=== PATIENT | female | born 1965 | race Hispanic/Latino ===

== ENCOUNTER → 2016-10-16 | Outpatient (CLI) | payer OTHER ==
[~2016-10-16] MED LIST: ALPR0.25 PO; ASPI-999 PO; BIRTH CONTROL; DICLOFENAC; GABAPENTIN; MESA800T PO; MULT-608; ONDAN4ODT PO; PNT40TEC PO
--- NOTE | 2016-10-21 17:17 | Diagnostic Imaging Report ---
Bilateral screening mammogram. The current study was also evaluated with a Computer Aided Detection (CAD) system. INDICATION: Screening. No current complaints stated on the questionnaire. COMPARISON: 10/08/15. FINDINGS: The breasts are composed of heterogeneously dense parenchyma which may decrease mammographic sensitivity. Benign-appearing calcifications are seen. Allowing for technique and positional differences, no suspicious change is seen. IMPRESSION: No significant change. ACR BI-RADS Category 2: Benign findings. Result letter will be mailed to the patient. Note: At least 10% of breast cancer is not imaged by mammography. Dictated by: Dictated on workstation # [id number]
== END ==
LOC: RAD 08:17
PROVIDERS: ATTEND Nurse Practitioner Family
DX: Z12.31 Encounter for screening mammogram for malignant neoplasm of breast (principal)
CPT/HCPCS: 77067

== ENCOUNTER 2017-04-08 14:30 | Outpatient (CLI) | payer OTHER ==
[~2017-04-08] VITALS: Ht 154.9 cm; Wt 58.1 kg
== END 2017-04-08 14:49 ==
LOC: PREOP 14:30
PROVIDERS: ATTEND Surgery
DX: Z01.818 Encounter for other preprocedural examination (principal); K92.1 Melena

== ENCOUNTER 2017-04-13 09:18 | Day surgery (SDC) | payer OTHER ==
[~2017-04-13] VITALS: Ht 154.9 cm; Wt 58.1 kg
[2017-04-13] MEDS ORDERED: LACTATED RINGERS 1,000 ML IV ONE (09:19)
--- OUTSIDE RECORDS SUMMARY | 2017-04-13 09:21 | XMS REPORT ---
Author Author JONY DE LA TORRE Organization eClinicalWorks Address Unknown Phone Unavailable Care Team Providers Care District Supervisor Name Role Phone JONY DE LA TORRE CP Unavailable Allergies No Known Allergies Problems Problem Type Condition Code Onset Dates Condition Status Problem Insomnia G47.00 Active Problem Pain in thoracic spine M54.6 Active Problem Anxiety F41.9 Active Assessment Colitis K52.9 Active Problem Routine adult health maintenance Z00.00 Active Assessment Routine health maintenance Z00.00 Active Medications No Known Medications Results No Known Results Summary Purpose eClinicalWorks Submission
--- OUTSIDE RECORDS SUMMARY | 2017-04-13 09:21 | XMS REPORT ---
Author Author KIM ISMMONS [facility] Address [address] [place] [address] Care Team Providers Care Etl Consultant Name Role Phone KIM SIMMONS Unavailable PROBLEMS Type Condition ICD9-CM Code [id number] Code Onset Dates Condition Status SNOMED Code Problem Lumbago with sciatica, right side M54.41 Active 038664808 Problem Anxiety F41.9 Active 21506616 Problem Reactive depression F32.9 Active 66202603 Problem Inflammatory bowel disease K52.9 Active 57223126 ALLERGIES No Known Allergies SOCIAL HISTORY Never Assessed PLAN OF CARE Activity Details Follow Up 3 Months Reason: VITAL SIGNS Height 60 in 2016-07-21 Weight 129.4 lbs 2016-07-21 Temperature 98.1 degrees Fahrenheit 2016-07-21 Heart Rate 80 bpm 2016-07-21 Respiratory Rate 20 2016-07-21 BMI 25.27 kg/m2 2016-07-21 Blood pressure systolic 108 mmHg 2016-07-21 Blood pressure diastolic 72 mmHg 2016-07-21 MEDICATIONS Medication Instructions Dosage Frequency Start Date End Date Duration Status Lialda 1.2 GM Orally Once a day 2 tabs 24h Active Zoloft 50 mg Orally Once a day, pc 1 tablet Jul, 30 day(s) Active RESULTS No Results PROCEDURES No Known procedures IMMUNIZATIONS No Known Immunizations MEDICAL (GENERAL) HISTORY Type Description Date Medical History back pain
--- OUTSIDE RECORDS SUMMARY | 2017-04-13 09:21 | XMS REPORT ---
Author Author KIM SIMMONS [facility] Address [address] [place] [address] Care Team Providers Care Pharmacy Picking Tech Name Role Phone KIM SIMMONS Unavailable PROBLEMS Type Condition ICD9-CM Code [id number] Code Onset Dates Condition Status SNOMED Code Problem Lumbago with sciatica, right side M54.41 Active 662700175 Problem Anxiety F41.9 Active 30844579 Problem Reactive depression F32.9 Active 22741017 Problem Inflammatory bowel disease K52.9 Active 38659376 ALLERGIES Unknown Allergies SOCIAL HISTORY No smoking Hx information available PLAN OF CARE VITAL SIGNS Height 60 in 2016-07-14 Heart Rate 78 bpm 2016-07-14 Respiratory Rate 18 2016-07-14 Blood pressure systolic 126 mmHg 2016-07-14 Blood pressure diastolic 82 mmHg 2016-07-14 MEDICATIONS Unknown Medications RESULTS No Results PROCEDURES No Known procedures IMMUNIZATIONS No Known Immunizations
--- OUTSIDE RECORDS SUMMARY | 2017-04-13 09:23 | XMS REPORT ---
Author Author JONY DE LA TORRE Organization eClinicalWorks Address Unknown Phone Unavailable Care Team Providers Care Electronic Equipment Repairmen Name Role Phone JONY DE LA TORRE CP Unavailable Allergies No Known Allergies Problems Problem Type Condition Code Onset Dates Condition Status Problem Insomnia G47.00 Active Problem Pain in thoracic spine M54.6 Active Problem Anxiety F41.9 Active Problem Routine adult health maintenance Z00.00 Active Medications No Known Medications Results No Known Results Summary Purpose eClinicalWorks Submission
--- OUTSIDE RECORDS SUMMARY | 2017-04-13 09:23 | XMS REPORT | Referral Summary ---
Author Author [facility] Organization [facility] Address Unknown Phone Unavailable Care Team Providers Care Program Project Manager Name Role Phone PROVIDER, NOTINSYSTEM PCP Unavailable Encounter [facility] [id number] Date(s): 03/04/16 - 03/04/16 [facility] [address] [place] [address] Discharge Diagnosis: Ulcerative colitis Discharge Disposition: 01-Home or Self Care Attending Physician: Camille Patterson III, MD Admitting Physician: Camille Patterson III, MD Referring Physician: Guanaco Viera Vital Signs Most recent to 1 oldest [Reference Range]: Peripheral Pulse 85 bpm Rate [60-100 bpm] (03/04/16 12:55 PM) Blood Pressure 110/58 mmHg [90-140/60-90 mmHg] (03/04/16 12:55 PM) SpO2 98 % (03/04/16 12:55 PM) Problem List Condition Effective Dates Status Health Status Informant Ulcerative Active colitis(Confirmed) Allergies, Adverse Reactions, Alerts No Known Medication Allergies Medications aspirin 81 mg, Oral, as needed, 0 Refill(s) Start Date: 06/28/15 Status: Ordered cyclobenzaprine 10 mg oral tablet 10 mg 1 tabs, Oral, TID, as needed for spasm, # 30 tabs, 0 Refill(s) Start Date: 03/04/16 Status: Ordered gabapentin 100 mg oral capsule 100 mg 1 caps, Oral, TID, # 90 caps, 0 Refill(s) Start Date: 03/04/16 Status: Ordered Lialda 1.2 g oral delayed release tablet 2.4 g 2 tabs, Oral, Daily, # 120 tabs, 0 Refill(s), samples given to patient (Rx ) Start Date: 06/28/15 Status: Ordered Results No data available for this section Immunizations No data available for this section Procedures No data available for this section Social History Social History Type Response Smoking Status Never smoker Assessment and Plan Extracted from: Title: Office Visit Note Author: Camille Patterson III, MD Date: 03/04/16 Assessment/Plan 1.Ulcerative colitis Continue Lialda 2.4 g daily samples number 72 given and we will work onher paperworkso thatthe medicationscan either be provided by the personal computer specialist or we can prescribe another medication such as balsalazide or sulfasalazine. Addendum She has a new primary care physician Yang Teresa. Is also taking gabapentin and by Leonardo cyclobenzaprine. Overall she is complaining that the distance from her home to her [place] offices very difficult for her so she may need to reestablish with a premium service representative Tin ANNA closer to home. We are still trying to establish however whether the Lialda will be on provided. 2016 13:50:43 CDT
--- OUTSIDE RECORDS SUMMARY | 2017-04-13 09:23 | XMS REPORT ---
Author FRIEDA Chakraborty [facility] eClinicalWorks Address Unknown Phone Unavailable Care Team Providers Care Telephone Station Repairer Name Role Phone FRIEDA SAWANT CP Unavailable Allergies, Adverse Reactions, Alerts Substance Reaction Event Type N.K.D.A. Info Not Available Non Drug Allergy Problems Problem Type Condition Code Onset Dates Condition Status Problem Routine adult health maintenance Z00.00 Active Assessment Colitis K52.9 Active Problem Pain in thoracic spine M54.6 Active Medications Medication Code System Code Instructions Start Date End Date Status Dosage Asacol HD [facility] [address]-00 800 MG Orally Three times a day 2 tablets Procedures Procedure Coding System Code Date Office Visit, Est Pt., Level 3 CPT-4 65680 May 29, 2015 Vital Signs Date/Time: May 29, 2015 Temperature 97.7 F Weight 134.0 lbs Height 60 in BMI 26.17 Index Blood Pressure Diastolic 70 mmHg Blood Pressure Systolic 112 mmHg Cardiac Monitoring Heart Rate 80 bpm Results No Known Results Summary Purpose eClinicalWorks Submission
--- OUTSIDE RECORDS SUMMARY | 2017-04-13 09:24 | XMS REPORT ---
Author Author PAUL MENARD Organization eClinicalWorks Address Unknown Phone Unavailable Care Team Providers Care Hotel Office Manager Name Role Phone PAUL MENARD CP Unavailable Allergies, Adverse Reactions, Alerts Substance Reaction Event Type N.K.D.A. Info Not Available Non Drug Allergy Problems Problem Type Condition Code Onset Dates Condition Status Problem Routine adult health maintenance Z00.00 Active Assessment Jaw pain R68.84 Active Problem Pain in thoracic spine M54.6 Active Medications Medication Code System Code Instructions Start Date End Date Status Dosage Asacol HD [facility] [address]-16 800 MG Orally Three times a day 2 tablets Lialda [facility] [address]-49 1.2 GM Orally Once a day 2 tabs Alprazolam [facility] [address]-21 0.25 MG Orally every 6hours as needed 1-2 tablet Cyclobenzaprine HCl [facility] [address]-26 10 MG Orally 2 times a day Jul 27, 2015 Aug 03, 2015 1 tablet Procedures Procedure Coding System Code Date Office Visit, Est Pt., Level 3 CPT-4 84719 Jul 27, 2015 Vital Signs Date/Time: Jul 27, 2015 Temperature 97.0 F Weight 134.6 lbs Height 60 in BMI 26.28 Index Blood Pressure Diastolic 70 mmHg Blood Pressure Systolic 106 mmHg Cardiac Monitoring Heart Rate 80 bpm Results No Known Results Summary Purpose eClinicalWorks Submission
[2017-04-13] MEDS ORDERED: HURRICAINE EXT TUBE (BENZOCAINE) ONE (09:27)
[2017-04-13] MEDS ORDERED: MIDAZOLAM 2 MG/2 ML (VERSED) VIAL ONE (09:28)
[2017-04-13] MEDS ORDERED: proPOfol 200 MG/20 ML (DIPRIVAN) VIAL IV ONE (09:28)
--- OUTSIDE RECORDS SUMMARY | 2017-04-13 09:28 | XMS REPORT ---
Author KIM Singh [facility] eClinicalWorks Address Unknown Phone Unavailable Care Team Providers Care Booking Supervisor Name Role Phone KIM SIMMONS CP Unavailable Allergies, Adverse Reactions, Alerts Substance Reaction Event Type N.K.D.A. Info Not Available Non Drug Allergy Problems Problem Type Condition Code Onset Dates Condition Status Problem Pain in thoracic spine M54.6 Active Problem Routine adult health maintenance Z00.00 Active Problem Anxiety F41.9 Active Assessment Anxiety F41.9 Active Medications Medication Code System Code Instructions Start Date End Date Status Dosage Asacol HD [facility] [address]-96 800 MG Orally Three times a day 2 tablets Alprazolam [facility] [address]-37 0.25 MG Orally qd as needed 1-2 tablet Trazodone HCl [facility] [address]-19 100 MG Orally hs September 24, 2015 1 tablet at bedtime Lialda [facility] [address]-01 1.2 GM Orally Once a day 2 tabs Procedures Procedure Coding System Code Date Office Visit, Est Pt., Level 3 CPT-4 83738 September 24, 2015 Vital Signs Date/Time: September 24, 2015 Temperature 97.7 F Weight 134 lbs Height 60 in BMI 26.17 Index Blood Pressure Diastolic 68 mmHg Blood Pressure Systolic 112 mmHg Cardiac Monitoring Heart Rate 64 bpm Results No Known Results Summary Purpose eClinicalWorks Submission
--- OUTSIDE RECORDS SUMMARY | 2017-04-13 09:28 | XMS REPORT ---
Author Author JONY DE LA TORRE Organization eClinicalWorks Address Unknown Phone Unavailable Care Team Providers Care Pediatric Physical Therapy Assistant Name Role Phone JONY DE LA TORRE CP Unavailable Allergies, Adverse Reactions, Alerts Substance Reaction Event Type N.K.D.A. Info Not Available Non Drug Allergy Problems Problem Type Condition Code Onset Dates Condition Status Problem Insomnia G47.00 Active Problem Pain in thoracic spine M54.6 Active Problem Anxiety F41.9 Active Problem Routine adult health maintenance Z00.00 Active Assessment Neuropathy G62.9 Active Medications Medication Code System Code Instructions Start Date End Date Status Dosage Lialda [facility] [address]-30 1.2 GM Orally Once a day 2 tabs Neurontin [facility] [address]-26 100 MG Orally Three times a day Jan 12, 2015 as directed Alprazolam [facility] [address]-63 0.25 MG Orally qd as needed 1-2 tablet Procedures Procedure Coding System Code Date Office Visit, Est Pt., Level 3 CPT-4 72008 December 27, 2015 Vital Signs Date/Time: December 27, 2015 Blood Pressure Systolic 120 mmHg Weight 134.0 lbs Height 60 in Blood Pressure Diastolic 76 mmHg Results No Known Results Summary Purpose eClinicalWorks Submission
--- OUTSIDE RECORDS SUMMARY | 2017-04-13 09:28 | XMS REPORT ---
Author FRIEDA Chakraborty [facility] eClinicalWorks Address Unknown Phone Unavailable Care Team Providers Care Digital Learning Platforms Manager Name Role Phone FRIEDA SAWANT CP Unavailable Allergies No Known Allergies Problems Problem Type Condition Code Onset Dates Condition Status Problem Routine adult health maintenance Z00.00 Active Problem Pain in thoracic spine M54.6 Active Medications No Known Medications Results No Known Results Summary Purpose eClinicalWorks Submission
--- OUTSIDE RECORDS SUMMARY | 2017-04-13 09:29 | XMS REPORT ---
Author HECTOR Brannon [facility] eClinicalWorks Address Unknown Phone Unavailable Care Team Providers Care Central Station Operator Name Role Phone HECTOR CONROY Unavailable Allergies, Adverse Reactions, Alerts Substance Reaction Event Type N.K.D.A. Info Not Available Non Drug Allergy Problems Problem Type Condition Code Onset Dates Condition Status Problem Insomnia G47.00 Active Problem Pain in thoracic spine M54.6 Active Problem Anxiety F41.9 Active Assessment Insomnia G47.00 Active Assessment Routine adult health maintenance Z00.00 Active Problem Routine adult health maintenance Z00.00 Active Assessment Well woman exam Z01.419 Active Medications Medication Code System Code Instructions Start Date End Date Status Dosage Asacol HD [facility] [address]-84 800 MG Orally Three times a day 2 tablets Trazodone HCl [facility] [address]-84 100 MG Orally hs September 24, 2015 1 tablet at bedtime Alprazolam [facility] [address]-41 0.25 MG Orally qd as needed 1-2 tablet Lialda [facility] [address]-12 1.2 GM Orally Once a day 2 tabs Procedures Procedure Coding System Code Date CULTURE, BACTERIA, OTHER CPT-4 89854 October 01, 2015 TRICHOMONAS ASSAY W/OPTIC CPT-4 52869 October 01, 2015 SPECIMEN HANDLING CPT-4 64777 October 01, 2015 TEST FOR BLOOD, FECES CPT-4 14991 October 01, 2015 Preventive Care Est Pt. Age 18-39 CPT-4 34229 October 01, 2015 Vital Signs Date/Time: October 01, 2015 Temperature 97.7 F Weight 134.3 lbs Height 60 in BMI 26.23 Index Blood Pressure Diastolic 66 mmHg Blood Pressure Systolic 108 mmHg Cardiac Monitoring Heart Rate 86 bpm Results Name Result Date Reference Range Unit Abnormality Flag PAP TEST, HPV IF ASCUS ----. . [id number] CULTURE, GENITAL ----Genital Culture, Routine Final report [id number] TRICHOMONAS (IN HOUSE) ----TRICHOMONAS NEGATIVE [id number] ----Control + [id number] ----Lot # [id number] ----Exp date 20151001 HEMOCCULT (IN HOUSE) ----Exp date Mar [id number] ----Control + [id number] ----Lot # [id number] ----RESULTS Negative [id number] PDF Report ----PDF Report1 [facility] [id number] Summary Purpose eClinicalWorks Submission
--- OUTSIDE RECORDS SUMMARY | 2017-04-13 09:29 | XMS REPORT ---
Author YULISSA Ma [facility] eClinicalWorks Address Unknown Phone Unavailable Care Team Providers Care Casting Machine Operator Name Role Phone YULISSA GARCIA CP Unavailable Allergies No Known Allergies Problems Problem Type Condition Code Onset Dates Condition Status Problem Pain in or around eye 379.91 Active Problem Accidental fall on or from sidewalk curb E880.1 Active Problem Migraine, unspecified without mention of intractable migraine without mention of status migrainosus 346.90 Active Problem Back pain 724.5 Active Problem Other specified menopausal and postmenopausal disorder 627.8 Active Problem Pain in thoracic spine 724.1 Active Problem Disturbance of skin sensation 782.0 Active Problem Disturbance of salivary secretion 527.7 Active Problem Scanty or infrequent menstruation 626.1 Active Problem Dizziness and giddiness 780.4 Active Problem Other specified viral warts 078.19 Active Problem Contusion of chest wall 922.1 Active Assessment Encounter for immunization Z23 Active Problem Screening for malignant neoplasm of the cervix V76.2 Active Problem Need for prophylactic vaccination and inoculation, Influenza V04.81 Active Problem Chronic pain due to trauma 338.21 Active Problem Dysfunction of Eustachian tube 381.81 Active Problem Special screening examination, human papillomavirus [HPV] V73.81 Active Problem Palpitations 785.1 Active Medications No Known Medications Procedures Procedure Coding System Code Date SINGLE IMMUNIZATION ADMIN CPT-4 76739 Mar 25, 2015 FLUARIX QUAD (3 & UP)-GSK-2014 CPT-4 03615 Mar 25, 2015 Results No Known Results Immunizations Vaccine Administration Date FLUARIX QUAD (3 & UP)-GSK-2014Mar 25, 2015 Summary Purpose eClinicalWorks Submission
--- OUTSIDE RECORDS SUMMARY | 2017-04-13 09:31 | XMS REPORT ---
Author Author JONY DE LA TORRE Organization eClinicalWorks Address Unknown Phone Unavailable Care Team Providers Care Nurse Licensed Practical Name Role Phone JONY DE LA TORRE CP Unavailable Allergies No Known Allergies Problems Problem Type Condition Code Onset Dates Condition Status Problem Insomnia G47.00 Active Problem Pain in thoracic spine M54.6 Active Problem Anxiety F41.9 Active Problem Routine adult health maintenance Z00.00 Active Medications No Known Medications Results No Known Results Summary Purpose eClinicalWorks Submission
--- OUTSIDE RECORDS SUMMARY | 2017-04-13 09:31 | XMS REPORT | Referral Summary ---
Author Author [facility] Organization [facility] Address Unknown Phone Unavailable Care Team Providers Care Stores Despatch Hand Name Role Phone Guanaco Viera PCP Encounter [facility] [id number] Date(s): 06/28/15 - 06/28/15 [facility] [address] [place] [address] Discharge Diagnosis: Ulcerative colitis Discharge Disposition: 01-Home or Self Care Attending Physician: Camille Patterson III, MD Admitting Physician: Camille Patterson III, MD Vital Signs Most recent to 1 oldest [Reference Range]: Peripheral Pulse 83 bpm Rate [60-100 bpm] (06/28/15 2:20 PM) Blood Pressure 116/70 mmHg [90-140/60-90 mmHg] (06/28/15 2:20 PM) Problem List Condition Effective Dates Status Health Status Informant Ulcerative Active colitis(Confirmed) Allergies, Adverse Reactions, Alerts No Known Medication Allergies Medications aspirin 81 mg, Oral, as needed, 0 Refill(s) Start Date: 06/28/15 Status: Ordered Lialda 1.2 g oral delayed release tablet 2.4 g 2 tabs, Oral, Daily, # 120 tabs, 0 Refill(s), samples given to patient (Rx ) Start Date: 06/28/15 Status: Ordered Melatonin 1 tabs, Oral, Bedtime (once a day), as needed, 0 Refill(s) Start Date: 06/28/15 Status: Ordered Tylenol Caplet 1 tabs, Oral, q4hr, as needed, 0 Refill(s) Start Date: 06/28/15 Status: Ordered Results No data available for this section Immunizations No data available for this section Procedures No data available for this section Social History No data available for this section Assessment and Plan Referrals to Other Providers Referred by: Camille Patterson III, MD
--- NOTE | 2017-04-13 09:33 | Progress Note-Pre Operative ---
Pre-Operative Progress Note H&P Reviewed The H&P was reviewed, patient examined and no changes noted. Date Seen by Provider: Apr 13, 2017 Time Seen by Provider: 09:32 Date H&P Reviewed: Apr 13, 2017 Time H&P Reviewed: 09:32 Pre-Operative Diagnosis: melena, occult + stool WAYNE HERNDON DO Apr 13, 2017 09:33
--- OUTSIDE RECORDS SUMMARY | 2017-04-13 09:33 | XMS REPORT ---
Author Author JONY DE LA TORRE Organization eClinicalWorks Address Unknown Phone Unavailable Care Team Providers Care Turf And Grounds Supervisor Name Role Phone JONY DE LA TORRE CP Unavailable Allergies No Known Allergies Problems Problem Type Condition Code Onset Dates Condition Status Problem Insomnia G47.00 Active Problem Pain in thoracic spine M54.6 Active Problem Anxiety F41.9 Active Problem Routine adult health maintenance Z00.00 Active Medications Medication Code System Code Instructions Start Date End Date Status Dosage Cholecalciferol [facility] [address]-71 2000 UNIT Orally Once a day January 03, 2016 1 capsule Results No Known Results Summary Purpose eClinicalWorks Submission
--- OUTSIDE RECORDS SUMMARY | 2017-04-13 09:33 | XMS REPORT ---
Author Author FRIEDA SAWANT Organization eClinicalWorks Address Unknown Phone Unavailable Care Team Providers Care Machine Sand Mixer Name Role Phone FRIEDA SAWANT CP Unavailable Allergies No Known Allergies Problems Problem Type Condition Code Onset Dates Condition Status Problem Routine adult health maintenance Z00.00 Active Assessment Routine adult health maintenance Z00.00 Active Problem Pain in thoracic spine M54.6 Active Medications No Known Medications Procedures Procedure Coding System Code Date COMPLETE CBC W/AUTO DIFF WBC CPT-4 60046 Mar 28, 2015 LIPID PANEL CPT-4 97153 Mar 28, 2015 ASSAY THYROID STIM HORMONE CPT-4 92117 Mar 28, 2015 VENIPUNCT, ROUTINE* CPT-4 49865 Mar 28, 2015 COMPREHEN METABOLIC PANEL CPT-4 59658 Mar 28, 2015 Results Name Result Date Reference Range Unit Abnormality Flag ROUTINE VENIPUNCTURE Summary Purpose eClinicalWorks Submission
--- OUTSIDE RECORDS SUMMARY | 2017-04-13 09:33 | XMS REPORT ---
Author FRIEDA Chakraborty [facility] eClinicalWorks Address Unknown Phone Unavailable Care Team Providers Care Tank Car Reconditioner Name Role Phone FRIEDA SAWANT CP Unavailable Allergies, Adverse Reactions, Alerts Substance Reaction Event Type N.K.D.A. Info Not Available Non Drug Allergy Problems Problem Type Condition Code Onset Dates Condition Status Problem Routine adult health maintenance Z00.00 Active Assessment Routine adult health maintenance Z00.00 Active Problem Pain in thoracic spine M54.6 Active Assessment Pain in thoracic spine M54.6 Active Assessment Encounter for screening fecal occult blood testing Z12.11 Active Medications No Known Medications Procedures Procedure Coding System Code Date Office Visit, Est Pt., Level 3 CPT-4 07670 Mar 27, 2015 Vital Signs Date/Time: Mar 27, 2015 Temperature 98.3 F Weight 133.4 lbs Height 60 in Pain Scale 8-9 1-10 Blood Pressure Diastolic 68 mmHg Blood Pressure Systolic 106 mmHg Cardiac Monitoring Heart Rate 88 bpm BMI 26.05 Index Results No Known Results Summary Purpose eClinicalWorks Submission
--- OUTSIDE RECORDS SUMMARY | 2017-04-13 09:33 | XMS REPORT | Referral Summary ---
Author Author [facility] Organization [facility] Address Unknown Phone Unavailable Care Team Providers Care Stock Handler Name Role Phone Guanaco Viera PCP Encounter [facility] [id number] Date(s): 08/21/15 - 08/21/15 [facility] [address] [place] [address] Discharge Diagnosis: Ulcerative colitis Discharge Disposition: 01-Home or Self Care Attending Physician: Camille Patterson III, MD Admitting Physician: Camille Patterson III, MD Vital Signs Most recent to 1 oldest [Reference Range]: Peripheral Pulse 83 bpm Rate [60-100 bpm] (08/21/15 11:13 AM) Blood Pressure 126/74 mmHg [90-140/60-90 mmHg] (08/21/15 11:13 AM) Problem List Condition Effective Dates Status Health [...] Note Author: Camille Patterson III, MD Date: 08/21/15 Assessment/Plan Ordered: Return to Clinic Ulcerative colitis-continue meds, compliance emphasized, rtn 6 mo. Lab was obtained today, will check.
--- OUTSIDE RECORDS SUMMARY | 2017-04-13 09:33 | XMS REPORT ---
Author KIM Singh [facility] eClinicalWorks Address Unknown Phone Unavailable Care Team Providers Care Life Insurance Actuary Name Role Phone KIM SIMMONS CP Unavailable Allergies, Adverse Reactions, Alerts Substance Reaction Event Type N.K.D.A. Info Not Available Non Drug Allergy Problems Problem Type Condition Code Onset Dates Condition Status Problem Insomnia G47.00 Active Problem Pain in thoracic spine M54.6 Active Problem Anxiety F41.9 Active Problem Routine adult health maintenance Z00.00 Active Assessment Jaw pain R68.84 Active Medications Medication Code System Code Instructions Start Date End Date Status Dosage Cholecalciferol [facility] [address]-15 2000 UNIT Orally Once a day January 03, 2016 1 capsule Lialda [facility] [place] [address]-16 1.2 GM Orally Once a day 2 tabs Cyclobenzaprine HCl [facility] [place] [address]-34 10 mg Orally 2 times a day January 07, 2016 1 tablet Alprazolam [facility] [place] [address]-76 0.25 MG Orally qd as needed 1-2 tablet Neurontin [facility] [place] [address]-19 100 MG Orally Three times a day Jan 12, 2015 as directed Procedures Procedure Coding System Code Date Office Visit, Est Pt., Level 2 CPT-4 10294 January 07, 2016 Vital Signs Date/Time: January 07, 2016 Cardiac Monitoring Heart Rate 80 bpm Weight 133.2 lbs Height 60 in BMI 26.01 Index Blood Pressure Diastolic 74 mmHg Blood Pressure Systolic 128 mmHg Results No Known Results Summary Purpose eClinicalWorks Submission
--- OUTSIDE RECORDS SUMMARY | 2017-04-13 09:33 | XMS REPORT ---
Author Author KIM SIMMONS [facility] eClinical[employer] Address Unknown Phone Unavailable Care Team Providers Care Break And Load Operator Name Role Phone KIM SIMMONS CP Unavailable Allergies No Known Allergies Problems Problem Type Condition Code Onset Dates Condition Status Problem Insomnia G47.00 Active Problem Pain in thoracic spine M54.6 Active Problem Anxiety F41.9 Active Problem Routine adult health maintenance Z00.00 Active Medications No Known Medications Results No Known Results Summary Purpose eClinicalWorks Submission
--- OUTSIDE RECORDS SUMMARY | 2017-04-13 09:33 | XMS REPORT ---
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
--- OUTSIDE RECORDS SUMMARY | 2017-04-13 09:33 | XMS REPORT ---
Author Author JONY DE LA TORRE Organization e[employer] Address Unknown Phone Unavailable Care Team Providers Care Supervisor Refining Name Role Phone JONY DE LA TORRE CP Unavailable Allergies No Known Allergies Problems Problem Type Condition Code Onset Dates Condition Status Problem Insomnia G47.00 Active Problem Pain in thoracic spine M54.6 Active Problem Anxiety F41.9 Active Assessment Colitis K52.9 Active Problem Routine adult health maintenance Z00.00 Active Assessment Routine health maintenance Z00.00 Active Medications No Known Medications Procedures Procedure Coding System Code Date HEPATIC FUNCTION PANEL CPT-4 73200 December 31, 2015 VENIPUNCT, ROUTINE* CPT-4 46722 December 31, 2015 ASSAY OF VITAMIN D CPT-4 21107 December 31, 2015 Results No Known Results Summary Purpose eClinicalWorks Submission
--- OUTSIDE RECORDS SUMMARY | 2017-04-13 09:35 | XMS REPORT | Continuity of Care Document ---
Author Author [facility] Address Unknown Phone Unavailable Allergies Active Description Code Type Severity Reaction Onset Reported/Identified Relationship to Patient Clinical Status Yes trazodone Drug Allergy N/A N/A 10/04/2014 Yes No Known Drug Allergies [id number] Drug Allergy Unknown N/ A 05/07/2015 Medications Problems Date Dx Coded Attending Type Code Diagnosis Diagnosed By 01/03/2008 V23.81 High-risk With Elderly Primigravida 01/03/2008 V23.81 High-risk With Elderly Primigravida 01/03/2008 KHOA PATEL APRN V23.81 High-risk With Elderly Primigravida 01/03/2008 ROMAIN VALLES APRN V23.81 High-risk With Elderly Primigravida 01/03/2008 ANASTACIO FERNANDES APRN S V23.81 High-risk With Elderly Primigravida 01/03/2008 YULISSA GARCIA DO V23.81 High-risk With Elderly Primigravida 01/03/2008 ANASTACIO FERNANDES APRN V23.81 High-risk With Elderly Primigravida 01/03/2008 KHOA PATEL APRN A V23.81 High-risk With Elderly Primigravida 01/03/2008 KIM SIMMONS MD V23.81 High-risk With Elderly Primigravida 01/03/2008 YANDEL WALKER APRN V23.81 High-risk With Elderly Primigravida 01/03/2008 BLADE ROWELL APRN V23.81 High-risk With Elderly Primigravida 01/03/2008 KHOA PATEL APRN A V23.81 High-risk With Elderly Primigravida 01/03/2008 MARGARET DOSS APRN V23.81 High-risk With Elderly Primigravida 01/03/2008 [facility]IST, KHOA A V23.81 High-risk With Elderly Primigravida 01/31/2008 V22.1 Pc Other Normal 01/31/2008 V22.1 Pc Other Normal 01/31/2008 J[facility] SPECIALIST, KHOA A V22.1 Pc Other Normal 01/31/2008 ROMAIN VALLES APRN R V22.1 Pc Other Normal 01/31/2008 ANASTACIO FERNANDES APRN S V22.1 Pc Other Normal 01/31/2008 YULISSA GARCIA DO K V22.1 Pc Other Normal 01/31/2008 DOM BONILLA, ANASTACIO S V22.1 Pc Other Normal 01/31/2008 JORGERONEN BONILLA, KHOA A V22.1 Pc Other Normal 01/31/2008 KIM SIMMONS MD V22.1 Pc Other Normal 01/31/2008 YANDEL WALKER APRN V22.1 Pc Other Normal 01/31/2008 BLADE ROWELL APRN V22.1 Pc Other Normal 01/31/2008 JORGE APRN, KHOA A V22.1 Pc Other Normal 01/31/2008 MARGARET DOSS APRN R V22.1 Pc Other Normal 01/31/2008 JORGE BONILLA, KHOA A V22.1 Pc Other Normal 06/24/2009 780.52 INSOMNIA, UNSPECIFIED 06/24/2009 V25.40 visit for: contraceptive surveillance 06/24/2009 V72.31 Pelvic Exam (Internal) 06/24/2009 780.52 INSOMNIA, UNSPECIFIED 06/24/2009 V25.40 visit for: contraceptive surveillance 06/24/2009 V72.31 Pelvic Exam (Internal) 06/24/2009 JORGE BONILLA, KHOA A 780.52 INSOMNIA, UNSPECIFIED 06/24/2009 JORGE BONILLA, KHOA A V25.40 visit for: contraceptive surveillance 06/24/2009 JORGE BONILLA, KHOA A V72.31 Pelvic Exam (Internal) 06/24/2009 ROMAIN VALLES APRN R 780.52 INSOMNIA, UNSPECIFIED 06/24/2009 ROMAIN VALLES APRN R V25.40 visit for: contraceptive surveillance 06/24/2009 ROMAIN VALLES APRN V72.31 Pelvic Exam (Internal) 06/24/2009 [facility]CARE SPECIALIST, ANASTACIO S 780.52 INSOMNIA, UNSPECIFIED 06/24/2009 DOM HEALTHCARE SPECIALIST, ANASTACIO S V25.40 visit for: contraceptive surveillance 06/24/2009 DOM HEALTHCARE SPECIALIST, ANASTACIO S V72.31 Pelvic Exam (Internal) 06/24/2009 GARCIA DO, YULISSA K 780.52 INSOMNIA, UNSPECIFIED 06/24/2009 GARCIA DO, YULISSA K V25.40 visit for: contraceptive surveillance 06/24/2009 GARCIA DO, YULISSA K V72.31 Pelvic Exam (Internal) 06/24/2009 [facility] SPECIALIST, ANASTACIO S 780.52 INSOMNIA, UNSPECIFIED 06/24/2009 DOM HEALTHCARE SPECIALIST, ANASTACIO S V25.40 visit for: contraceptive surveillance 06/24/2009 DOM HEALTHCARE SPECIALIST, ANASTACIO S V72.31 Pelvic Exam (Internal) 06/24/2009 J[facility] SPECIALIST, KHOA A 780.52 INSOMNIA, UNSPECIFIED 06/24/2009 J[facility] SPECIALIST, KHOA A V25.40 visit for: contraceptive surveillance 06/24/2009 JOR[facility] SPECIALIST, KHOA A V72.31 Pelvic Exam (Internal) 06/24/2009 KIM SIMMONS MD 780.52 INSOMNIA, UNSPECIFIED 06/24/2009 KIM SIMMONS MD V25.40 visit for: contraceptive surveillance 06/24/2009 KIM SIMMONS MD V72.31 Pelvic Exam (Internal) 06/24/2009 YANDEL WALKER APRN 780.52 INSOMNIA, UNSPECIFIED 06/24/2009 YANDEL WALEKR APRN V25.40 visit for: contraceptive surveillance 06/24/2009 YANDEL WALKER APRN V72.31 Pelvic Exam (Internal) 06/24/2009 JOSE CASHBLADE MOISE APRN N 780.52 INSOMNIA, UNSPECIFIED 06/24/2009 GARCIA [facility] SPECIALIST BLADE N V25.40 visit for: contraceptive surveillance 06/24/2009 GARCIA [facility] SPECIALIST, BLADE N V72.31 Pelvic Exam (Internal) 06/24/2009 JORGE [facility]ALTHC[facility] SPECIALIST, KHOA A 780.52 INSOMNIA, UNSPECIFIED 06/24/2009 JORGE [facility]ALTHC[facility] SPECIALIST, KHOA A V25.40 visit for: contraceptive surveillance 06/24/2009 JORGE REBOLLEDON, KHOA A V72.31 Pelvic Exam (Internal) 06/24/2009 UNA DOSS APRNINA R 780.52 INSOMNIA, UNSPECIFIED 06/24/2009 ROMARIO [facility]ALTHCARE SPECIALISTUNAMARGARET R V25.40 visit for: contraceptive surveillance 06/24/2009 UNA DOSS APRNINA R V72.31 Pelvic Exam (Internal) 06/24/2009 JORGENathan BONILLA KHOA A 780.52 INSOMNIA, UNSPECIFIED 06/24/2009 JORGE REBOLLEDON, KHOA A V25.40 visit for: contraceptive surveillance 06/24/2009 JORGE REBOLLEDON, KHOA A V72.31 Pelvic Exam (Internal) 08/19/2009 300.00 ANXIETY UNSPEC 08/19/2009 704.00 ALOPECIA UNSPECIFIED 08/19/2009 780.79 MALAISE AND FATIGUE 08/19/2009 300.00 ANXIETY UNSPEC 08/19/2009 704.00 ALOPECIA UNSPECIFIED 08/19/2009 780.79 MALAISE AND FATIGUE 08/19/2009 JORGE APRN, KHOA A 300.00 ANXIETY UNSPEC 08/19/2009 JORGE APRN, KHOA A 704.00 ALOPECIA UNSPECIFIED 08/19/2009 JORGE APRN, KHOA A 780.79 MALAISE AND FATIGUE 08/19/2009 BRENDAN VALLES APRNRICIA R 300.00 ANXIETY UNSPEC 08/19/2009 BRENDAN VALLES APRNRICIA R 704.00 ALOPECIA UNSPECIFIED 08/19/2009 BRENDAN VALLES APRNRICIA R 780.79 MALAISE AND FATIGUE 08/19/2009 EVI FERNANDES APRNNDA S 300.00 ANXIETY UNSPEC 08/19/2009 EVI FERNANDES APRNNDA S 704.00 ALOPECIA UNSPECIFIED 08/19/2009 EVI FERNANDES APRNNDA S 780.79 MALAISE AND FATIGUE 08/19/2009 GARCIA DO YULISSA K 300.00 ANXIETY UNSPEC 08/19/2009 GARCIA DO YULISSA K 704.00 ALOPECIA UNSPECIFIED 08/19/2009 GARCIA DO YULISSA K 780.79 MALAISE AND FATIGUE 08/19/2009 EVI FERNANDES APRNNDA S 300.00 ANXIETY UNSPEC 08/19/2009 EIV FERNANDES APRNNDA S 704.00 ALOPECIA UNSPECIFIED 08/19/2009 ANASTACIO FERNANDES APRN S 780.79 MALAISE AND FATIGUE 08/19/2009 J[facility] SPECIALIST, KHOA A 300.00 ANXIETY UNSPEC 08/19/2009 JORGE HEALTHCARE SPECIALIST, KHOA A 704.00 ALOPECIA UNSPECIFIED 08/19/2009 JORGE [facility]ALTHC[facility] SPECIALIST, KHOA A 780.79 MALAISE AND FATIGUE 08/19/2009 KIM SIMMONS MD 300.00 ANXIETY UNSPEC 08/19/2009 KIM SIMMONS MD 704.00 ALOPECIA UNSPECIFIED 08/19/2009 KIM SIMMONS MD 780.79 MALAISE AND FATIGUE 08/19/2009 YANDEL WALKER APRN 300.00 ANXIETY UNSPEC 08/19/2009 YANDEL WALKER APRN 704.00 ALOPECIA UNSPECIFIED 08/19/2009 YANDEL WALKER APRN 780.79 MALAISE AND FATIGUE 08/19/2009 BLADE ROWELL APRN N 300.00 ANXIETY UNSPEC 08/19/2009 ANTHONY ROWELL APRNCY N 704.00 ALOPECIA UNSPECIFIED 08/19/2009 GARCIABENNETT GILLIS APRN, BLADE N 780.79 MALAISE AND FATIGUE 08/19/2009 [facility] SPECIALIST, KHOA A 300.00 ANXIETY UNSPEC 08/19/2009 JORGE HEALTHCARE SPECIALIST, KHOA A 704.00 ALOPECIA UNSPECIFIED 08/19/2009 JORGE [facility]ALTHC[facility] SPECIALIST, KHOA A 780.79 MALAISE AND FATIGUE 08/19/2009 UNA DOSS APRNINA R 300.00 ANXIETY UNSPEC 08/19/2009 ROMARIO REBOLLEDON, MARGARET R 704.00 ALOPECIA UNSPECIFIED 08/19/2009 ROMARIO REBOLLEDON, MARGARET R 780.79 MALAISE AND FATIGUE 08/19/2009 JOR[facility] SPECIALIST, KHOA A 300.00 ANXIETY UNSPEC 08/19/2009 JORGE HEALTHCARE SPECIALIST, KHOA A 704.00 ALOPECIA UNSPECIFIED 08/19/2009 JORGE HEALTHCARE SPECIALIST, KHOA A 780.79 MALAISE AND FATIGUE 09/02/2009 477.9 RHINITIS 09/02/2009 477.9 RHINITIS 09/02/2009 JORGE REBOLLEDON, KHOA A 477.9 RHINITIS 09/02/2009 [facility]IST, ROMAIN R 477.9 RHINITIS 09/02/2009 DOM [facility]ALTHCARE SPECIALIST, ANASTACIO S 477.9 RHINITIS 09/02/2009 YULISSA GARCIA DO K 477.9 RHINITIS 09/02/2009 DOM [facility]ALTHCARE SPECIALIST, ANASTACIO S 477.9 RHINITIS 09/02/2009 JOR[facility] SPECIALIST, KHOA A 477.9 RHINITIS 09/02/2009 KIM SIMMONS MD 477.9 RHINITIS 09/02/2009 [facility] SPECIALISTYANDEL 477.9 RHINITIS 09/02/2009 JOSE GILLIS HEALTHCARE SPECIALIST, BLADE N 477.9 RHINITIS 09/02/2009 JORGE [facility]ALTHC[facility] SPECIALIST, KHOA A 477.9 RHINITIS 09/02/2009 ROMARIO [facility]ALTHCARE SPECIALIST, MARGARET R 477.9 RHINITIS 09/02/2009 JORGE [facility]ALTHC[facility] SPECIALIST, KHOA A 477.9 RHINITIS 01/13/2010 727.43 GANGLION, UNSPECIFIED 01/13/2010 727.43 GANGLION, UNSPECIFIED 01/13/2010 JOR[facility] SPECIALIST, KHOA A 727.43 GANGLION, UNSPECIFIED 01/13/2010 REENA [facility]ALTHCARE SPECIALISTBRENDAN EvansROMAIN R 727.43 GANGLION, UNSPECIFIED 01/13/2010 DOM [facility]ALTHCARE SPECIALIST, ANASTACIO S 727.43 GANGLION, UNSPECIFIED 01/13/2010 YULISSA GARCIA DO K 727.43 GANGLION, UNSPECIFIED 01/13/2010 DOM HEALTHCARE SPECIALIST, ANASTACIO S 727.43 GANGLION, UNSPECIFIED 01/13/2010 JORGE [facility] SPECIALIST, KHOA A 727.43 GANGLION, UNSPECIFIED 01/13/2010 KIM SIMMONS MD 727.43 GANGLION, UNSPECIFIED 01/13/2010 YANDEL WALKER APRN 727.43 GANGLION, UNSPECIFIED 01/13/2010 JOSE GILLIS HEALTHCARE SPECIALIST, BLADE N 727.43 GANGLION, UNSPECIFIED 01/13/2010 JORGE [facility]ALTHC[facility] SPECIALIST, KHOA A 727.43 GANGLION, UNSPECIFIED 01/13/2010 ROMARIO [facility] SPECIALIST, MARGARET R 727.43 GANGLION, UNSPECIFIED 01/13/2010 JORGE [facility]ALTHC[facility] SPECIALIST, KHOA A 727.43 GANGLION, UNSPECIFIED 02/25/2010 850.9 CONCUSSION, UNSPECIFIED 02/25/2010 850.9 CONCUSSION, UNSPECIFIED 02/25/2010 JOR[facility] SPECIALIST, KHOA A 850.9 CONCUSSION, UNSPECIFIED 02/25/2010 REENA BONILLA, ROMAIN R 850.9 CONCUSSION, UNSPECIFIED 02/25/2010 EVI FERNANDES APRNNDA S 850.9 CONCUSSION, UNSPECIFIED 02/25/2010 JOSE WOODSYULISSA Yusra 850.9 CONCUSSION, UNSPECIFIED 02/25/2010 DOM BONILLA, ANASTACIO S 850.9 CONCUSSION, UNSPECIFIED 02/25/2010 JORGE REBOLLEDON, KHOA A 850.9 CONCUSSION, UNSPECIFIED 02/25/2010 TROY ANNA, KIM 850.9 CONCUSSION, UNSPECIFIED 02/25/2010 [facility] SPECIALIST, YANDEL Haque 850.9 CONCUSSION, UNSPECIFIED 02/25/2010 JOSE GILLIS HEALTHCARE SPECIALIST, BLADE Evans 850.9 CONCUSSION, UNSPECIFIED 02/25/2010 JORGE REBOLLEDON, KHOA A 850.9 CONCUSSION, UNSPECIFIED 02/25/2010 ROMARIO BONILLA, MARGARET R 850.9 CONCUSSION, UNSPECIFIED 02/25/2010 JORGE REBOLLEDON, KHOA A 850.9 CONCUSSION, UNSPECIFIED 06/27/2010 611.71 BREAST PAIN 06/27/2010 V76.10 visit for: screening exam malignant neoplasm breast 06/27/2010 V76.12 MAMMOGRAM SCREENING 06/27/2010 611.71 BREAST PAIN 06/27/2010 V76.10 visit for: screening exam malignant neoplasm breast 06/27/2010 V76.12 MAMMOGRAM SCREENING 06/27/2010 JORGE BONILLA, KHOA A 611.71 BREAST PAIN 06/27/2010 JORGE BONILLA KHOA A V76.10 visit for: screening exam malignant neoplasm breast 06/27/2010 JORGE BONILLA, KHOA A V76.12 MAMMOGRAM SCREENING 06/27/2010 REENA BONILLA, ROMAIN R 611.71 BREAST PAIN 06/27/2010 REENA BONILLA ROMAIN R V76.10 visit for: screening exam malignant neoplasm breast 06/27/2010 BRENDAN VALLES APRNRICIA R V76.12 MAMMOGRAM SCREENING 06/27/2010 KEISHA FERNANDES APRNA S 611.71 BREAST PAIN 06/27/2010 EVI FERNANDES APRNNDA S V76.10 visit for: screening exam malignant neoplasm breast 06/27/2010 DOM [facility]ALTHCARE SPECIALIST, ANASTACIO S V76.12 MAMMOGRAM SCREENING 06/27/2010 GARCIA DO, YULISSA K 611.71 BREAST PAIN 06/27/2010 GARCIA DO, YULISSA K V76.10 visit for: screening exam malignant neoplasm breast 06/27/2010 JOSE WOODS YULISSA K V76.12 MAMMOGRAM SCREENING 06/27/2010 DOM BONILLA ANASTACIO S 611.71 BREAST PAIN 06/27/2010 DOM BONILLA ANASTACIO S V76.10 visit for: screening exam malignant neoplasm breast 06/27/2010 DOM BONILLA ANASTACIO S V76.12 MAMMOGRAM SCREENING 06/27/2010 SARAH PATEL APRNIDI A 611.71 BREAST PAIN 06/27/2010 SARAH PATEL APRNIDI A V76.10 visit for: screening exam malignant neoplasm breast 06/27/2010 SARAH PATEL APRNIDI A V76.12 MAMMOGRAM SCREENING 06/27/2010 KIM SIMMONS MD 611.71 BREAST PAIN 06/27/2010 KIM SIMMONS MD V76.10 visit for: screening exam malignant neoplasm breast 06/27/2010 KIM SIMMONS MD V76.12 MAMMOGRAM SCREENING 06/27/2010 YANDEL WALKER APRN 611.71 BREAST PAIN 06/27/2010 YANDEL WALKER APRN V76.10 visit for: screening exam malignant neoplasm breast 06/27/2010 YANDEL WALKER APRN V76.12 MAMMOGRAM SCREENING 06/27/2010 BLADE ROWELL APRN N 611.71 BREAST PAIN 06/27/2010 BLADE ROWELL APRN N V76.10 visit for: screening exam malignant neoplasm breast 06/27/2010 ANTHONY ROWELL APRNCY N V76.12 MAMMOGRAM SCREENING 06/27/2010 SARAH PATEL APRNIDI A 611.71 BREAST PAIN 06/27/2010 JORGE BONILLA KHOA A V76.10 visit for: screening exam malignant neoplasm breast 06/27/2010 JORGE BONILLA KHOA A V76.12 MAMMOGRAM SCREENING 06/27/2010 UNA DOSS APRNINA R 611.71 BREAST PAIN 06/27/2010 ROMARIO BONILLA MARGARET R V76.10 visit for: screening exam malignant neoplasm breast 06/27/2010 MARGARET DOSS APRN R V76.12 MAMMOGRAM SCREENING 06/27/2010 KHOA PATEL APRN A 611.71 BREAST PAIN 06/27/2010 KHOA PATEL APRN A V76.10 visit for: screening exam malignant neoplasm breast 06/27/2010 KHOA PATEL APRN A V76.12 MAMMOGRAM SCREENING 07/09/2010 454.9 VARICOSE VEINS 07/09/2010 454.9 VARICOSE VEINS 07/09/2010 KHOA PATEL APRN A 454.9 VARICOSE VEINS 07/09/2010 ROMAIN VALLES APRN R 454.9 VARICOSE VEINS 07/09/2010 ANASTACIO FERNANDES APRN S 454.9 VARICOSE VEINS 07/09/2010 YULISSA GARCIA DO 454.9 VARICOSE VEINS 07/09/2010 ANASTACIO FERNANDES APRN S 454.9 VARICOSE VEINS 07/09/2010 KHOA PATEL APRN A 454.9 VARICOSE VEINS 07/09/2010 KIM SIMMONS MD 454.9 VARICOSE VEINS 07/09/2010 YANDEL WALKER APRN 454.9 VARICOSE VEINS 07/09/2010 BLADE ROWELL APRN 454.9 VARICOSE VEINS 07/09/2010 JORGEKHOA Evans APRN A 454.9 VARICOSE VEINS 07/09/2010 MARGARET DOSS APRN R 454.9 VARICOSE VEINS 07/09/2010 JORGEKHOA Evans APRN A 454.9 VARICOSE VEINS 10/21/2010 564.00 UNSPECIFIED CONSTIPATION 10/21/2010 724.2 LUMBAGO 10/21/2010 789.00 ABDOMINAL PAIN UNSPECIFIED SITE 10/21/2010 564.00 UNSPECIFIED CONSTIPATION 10/21/2010 724.2 LUMBAGO 10/21/2010 789.00 ABDOMINAL PAIN UNSPECIFIED SITE 10/21/2010 KHOA PATEL APRN A 564.00 UNSPECIFIED CONSTIPATION 10/21/2010 KHOA PATEL APRN A 724.2 LUMBAGO 10/21/2010 KHOA PATEL APRN A 789.00 ABDOMINAL PAIN UNSPECIFIED SITE 10/21/2010 [facility], ROMAIN R 564.00 UNSPECIFIED CONSTIPATION 10/21/2010 [facility] SPECIALIST, ROMAIN R 724.2 LUMBAGO 10/21/2010 [facility] SPECIALIST, ROMAIN R 789.00 ABDOMINAL PAIN UNSPECIFIED SITE 10/21/2010 [facility] SPECIALIST, ANASTACIO S 564.00 UNSPECIFIED CONSTIPATION 10/21/2010 DOM [facility] SPECIALIST, ANASTACIO S 724.2 LUMBAGO 10/21/2010 DOM [facility]ALTHCARE SPECIALIST, ANASTACIO S 789.00 ABDOMINAL PAIN UNSPECIFIED SITE 10/21/2010 GARCIA DO, YULISSA K 564.00 UNSPECIFIED CONSTIPATION 10/21/2010 GARCIA DO, YULISSA K 724.2 LUMBAGO 10/21/2010 GARCIA DO, YULISSA K 789.00 ABDOMINAL PAIN UNSPECIFIED SITE 10/21/2010 DOM [facility] SPECIALIST, ANASTACIO S 564.00 UNSPECIFIED CONSTIPATION 10/21/2010 DOM [facility]ALTHCARE SPECIALIST, ANASTACIO S 724.2 LUMBAGO 10/21/2010 DOM [facility]ALTHCARE SPECIALIST, ANASTACIO S 789.00 ABDOMINAL PAIN UNSPECIFIED SITE 10/21/2010 KHOA PATEL APRN A 564.00 UNSPECIFIED CONSTIPATION 10/21/2010 KHOA PATEL APRN A 724.2 LUMBAGO 10/21/2010 KHOA PATEL APRN A 789.00 ABDOMINAL PAIN UNSPECIFIED SITE 10/21/2010 KIM SIMMONS MD 564.00 UNSPECIFIED CONSTIPATION 10/21/2010 KIM SIMMONS MD 724.2 LUMBAGO 10/21/2010 KIM SIMMONS MD 789.00 ABDOMINAL PAIN UNSPECIFIED SITE 10/21/2010 YANDEL WALKER APRN 564.00 UNSPECIFIED CONSTIPATION 10/21/2010 YANDEL WALKER APRN 724.2 LUMBAGO 10/21/2010 YANDEL WALKER APRN 789.00 ABDOMINAL PAIN UNSPECIFIED SITE 10/21/2010 BLADE ROWELL APRN N 564.00 UNSPECIFIED CONSTIPATION 10/21/2010 JOSE GILLIS HEALTHCARE SPECIALIST, BLADE N 724.2 LUMBAGO 10/21/2010 BLADE ROWELL APRN N 789.00 ABDOMINAL PAIN UNSPECIFIED SITE 10/21/2010 [facility] SPECIALIST, KHOA A 564.00 UNSPECIFIED CONSTIPATION 10/21/2010 JORGE BONILLA, KHOA A 724.2 LUMBAGO 10/21/2010 JORGE REBOLLEDON, KHOA A 789.00 ABDOMINAL PAIN UNSPECIFIED SITE 10/21/2010 [facility], MARGARET R 564.00 UNSPECIFIED CONSTIPATION 10/21/2010 [facility] SPECIALIST, MARGARET R 724.2 LUMBAGO 10/21/2010 [facility] SPECIALIST, MARGARET R 789.00 ABDOMINAL PAIN UNSPECIFIED SITE 10/21/2010 JORGE BONILLA, KHOA A 564.00 UNSPECIFIED CONSTIPATION 10/21/2010 JORGE BONILLA, KHOA A 724.2 LUMBAGO 10/21/2010 JORGE BONILLA, KHOA A 789.00 ABDOMINAL PAIN UNSPECIFIED SITE 11/04/2010 216.9 MOLE/NEVUS - SITE UNSPECIFIED 11/04/2010 780.8 excessive sweating 11/04/2010 784.0 HEADACHE 11/04/2010 216.9 MOLE/NEVUS - SITE UNSPECIFIED 11/04/2010 780.8 excessive sweating 11/04/2010 784.0 HEADACHE 11/04/2010 JORGE BONILLA, KHOA A 216.9 MOLE/NEVUS - SITE UNSPECIFIED 11/04/2010 JORGE BONILLA, KHOA A 780.8 excessive sweating 11/04/2010 SARAH PATEL APRNIDI A 784.0 HEADACHE 11/04/2010 SERVANDO VALLES APRNIA R 216.9 MOLE/NEVUS - SITE UNSPECIFIED 11/04/2010 SERVANDO VALLES APRNIA R 780.8 excessive sweating 11/04/2010 SERVANDO VALLES APRNIA R 784.0 HEADACHE 11/04/2010 EVI FERNANDES APRNNDA S 216.9 MOLE/NEVUS - SITE UNSPECIFIED 11/04/2010 EVI FERNANDES APRNNDA S 780.8 excessive sweating 11/04/2010 EVI FERNANDES APRNNDA S 784.0 HEADACHE 11/04/2010 GARCIA DO, YULISSA K 216.9 MOLE/NEVUS - SITE UNSPECIFIED 11/04/2010 GARCIA DO, YULISSA K 780.8 excessive sweating 11/04/2010 GARCIA DO, YULISSA K 784.0 HEADACHE 11/04/2010 ANASTACIO FERNANDES APRN S 216.9 MOLE/NEVUS - SITE UNSPECIFIED 11/04/2010 ANASTACIO FERNANDES APRN S 780.8 excessive sweating 11/04/2010 ANASTACIO FERNANDES APRN S 784.0 HEADACHE 11/04/2010 JORGEKHOA Evans APRN A 216.9 MOLE/NEVUS - SITE UNSPECIFIED 11/04/2010 JORGESARAH Evans APRNIDI A 780.8 excessive sweating 11/04/2010 JORGESARAH HARDWICK APRNIDI A 784.0 HEADACHE 11/04/2010 KIM SIMMONS MD 216.9 MOLE/NEVUS - SITE UNSPECIFIED 11/04/2010 KIM SIMMONS MD 780.8 excessive sweating 11/04/2010 KIM SIMMONS MD 784.0 HEADACHE 11/04/2010 YANDEL WALKER APRN 216.9 MOLE/NEVUS - SITE UNSPECIFIED 11/04/2010 YANDEL WALKER APRN 780.8 EXCESSIVE SWEATING 11/04/2010 YANDEL WALKER APRN 784.0 HEADACHE 11/04/2010 BLADE ROWELL APRN N 216.9 MOLE/NEVUS - SITE UNSPECIFIED 11/04/2010 BLADE ROWELL APRN N 780.8 EXCESSIVE SWEATING 11/04/2010 BLADE ROWELL APRN N 784.0 HEADACHE 11/04/2010 KHOA PATEL APRN A 216.9 MOLE/NEVUS - SITE UNSPECIFIED 11/04/2010 SARAH PATEL APRNIDI A 780.8 EXCESSIVE SWEATING 11/04/2010 SARAH PATEL APRNIDI A 784.0 HEADACHE 11/04/2010 ROMARIO BONILLA MARGARET R 216.9 MOLE/NEVUS - SITE UNSPECIFIED 11/04/2010 ROMARIO BONILLA, MARGARET R 780.8 EXCESSIVE SWEATING 11/04/2010 ROMARIO BONILLA, MARGARET R 784.0 HEADACHE 11/04/2010 SARAH PATEL APRNIDI A 216.9 MOLE/NEVUS - SITE UNSPECIFIED 11/04/2010 JORGE BONILLA KHOA A 780.8 EXCESSIVE SWEATING 11/04/2010 JORGE BONILLA KHOA A 784.0 HEADACHE 01/15/2011 268.9 VITAMIN D DEFICIENCY 01/15/2011 268.9 VITAMIN D DEFICIENCY 01/15/2011 [facility], KHOA A 268.9 VITAMIN D DEFICIENCY 01/15/2011 SERVANDO VALLES APRNIA R 268.9 VITAMIN D DEFICIENCY 01/15/2011 [facility] SPECIALIST, ANASTACIO S 268.9 VITAMIN D DEFICIENCY 01/15/2011 GARCIA DO, YULISSA K 268.9 VITAMIN D DEFICIENCY 01/15/2011 DOM [facility]CARE SPECIALIST, ANASTACIO S 268.9 VITAMIN D DEFICIENCY 01/15/2011 J[facility] SPECIALIST, KHOA A 268.9 VITAMIN D DEFICIENCY 01/15/2011 KIM SIMMONS MD 268.9 VITAMIN D DEFICIENCY 01/15/2011 YANDEL WALKER APRN 268.9 VITAMIN D DEFICIENCY 01/15/2011 BLADE ROWELL APRN 268.9 VITAMIN D DEFICIENCY 01/15/2011 [facility] SPECIALIST, KHOA A 268.9 VITAMIN D DEFICIENCY 01/15/2011 MARGARET DOSS APRN R 268.9 VITAMIN D DEFICIENCY 01/15/2011 [facility] SPECIALIST, KHOA A 268.9 VITAMIN D DEFICIENCY 07/13/2011 078.19 WARTS, COMMON 07/13/2011 078.19 WARTS, COMMON 07/13/2011 [facility] SPECIALIST, KHOA A 078.19 WARTS, COMMON 07/13/2011 SERVANDO VALLES APRNIA R 078.19 WARTS, COMMON 07/13/2011 DOM BONILLA, ANASTACIO S 078.19 WARTS, COMMON 07/13/2011 GARCIA DO, YULISSA K 078.19 WARTS, COMMON 07/13/2011 DOM BONILLA, ANASTACIO S 078.19 WARTS, COMMON 07/13/2011 [facility] SPECIALIST, KHOA A 078.19 WARTS, COMMON 07/13/2011 KIM SIMMONS MD 078.19 WARTS, COMMON 07/13/2011 YANDEL WALKER APRN 078.19 WARTS, COMMON 07/13/2011 BLADE ROWELL APRN N 078.19 WARTS, COMMON 07/13/2011 [facility] SPECIALIST, KHOA A 078.19 WARTS, COMMON 07/13/2011 MARGARET DOSS APRN R 078.19 WARTS, COMMON 07/13/2011 SARAH PATEL APRNIDI A 078.19 WARTS, COMMON 09/28/2011 V73.81 visit for: screening exam for human papillomavirus (HPV) 09/28/2011 V76.2 Cervical Pap Smear 09/28/2011 V73.81 visit for: screening exam for human papillomavirus (HPV) 09/28/2011 V76.2 Cervical Pap Smear 09/28/2011 KHOA PATEL APRN A V73.81 visit for: screening exam for human papillomavirus (HPV) 09/28/2011 SARAH PATEL APRNIDI A V76.2 Cervical Pap Smear 09/28/2011 BRENDAN VALLES APRNRICIA R V73.81 visit for: screening exam for human papillomavirus (HPV) 09/28/2011 SERVANDO VALLES APRNIA R V76.2 Cervical Pap Smear 09/28/2011 ANASTACIO FERNANDES APRN S V73.81 visit for: screening exam for human papillomavirus (HPV) 09/28/2011 ANASTACIO FERNANDES APRN S V76.2 Cervical Pap Smear 09/28/2011 YULISSA GARCIA DO K V73.81 visit for: screening exam for human papillomavirus (HPV) 09/28/2011 YULISSA GARCIA DO K V76.2 Cervical Pap Smear 09/28/2011 KEISHA FERNANDES APRNA S V73.81 visit for: screening exam for human papillomavirus (HPV) 09/28/2011 KEISHA FERNANDES APRNA S V76.2 Cervical Pap Smear 09/28/2011 KHOA PATEL APRN A V73.81 visit for: screening exam for human papillomavirus (HPV) 09/28/2011 SARAH PATEL APRNIDI A V76.2 Cervical Pap Smear 09/28/2011 KMI SIMMONS MD V73.81 visit for: screening exam for human papillomavirus (HPV) 09/28/2011 KIM SIMMONS MD V76.2 Cervical Pap Smear 09/28/2011 YANDEL WALKER APRN V73.81 visit for: screening exam for human papillomavirus (HPV) 09/28/2011 YANDEL WALKER APRN V76.2 Cervical Pap Smear 09/28/2011 BLADE ROWELL APRN V73.81 visit for: screening exam for human papillomavirus (HPV) 09/28/2011 JOSE GILLIS APRN BLADE N V76.2 Cervical Pap Smear 09/28/2011 JORGEKHOA Evans APRN A V73.81 visit for: screening exam for human papillomavirus (HPV) 09/28/2011 JORGE APRN, KHOA A V76.2 Cervical Pap Smear 09/28/2011 UNA DOSS APRNINA R V73.81 visit for: screening exam for human papillomavirus (HPV) 09/28/2011 ROMARIO BONILLA, MARGARET R V76.2 Cervical Pap Smear 09/28/2011 JORGESARAH Evans APRNIDI A V73.81 visit for: screening exam for human papillomavirus (HPV) 09/28/2011 KHOA PATEL APRN A V76.2 Cervical Pap Smear 02/24/2012 785.1 PALPITATIONS 02/24/2012 785.1 PALPITATIONS 02/24/2012 KHOA PATEL APRN A 785.1 PALPITATIONS 02/24/2012 ROMAIN VALLES APRN R 785.1 PALPITATIONS 02/24/2012 ANASTACIO FERNANDES APRN S 785.1 PALPITATIONS 02/24/2012 YULISSA GARCIA DO K 785.1 PALPITATIONS 02/24/2012 ANASTACIO FERNANDES APRN S 785.1 PALPITATIONS 02/24/2012 KHOA PATEL APRN A 785.1 PALPITATIONS 02/24/2012 KIM SIMMONS MD 785.1 PALPITATIONS 02/24/2012 YANDEL WALKER APRN 785.1 PALPITATIONS 02/24/2012 BLADE ROWELL APRN N 785.1 PALPITATIONS 02/24/2012 SARAH PATEL APRNIDI A 785.1 PALPITATIONS 02/24/2012 UNA DOSS APRNINA R 785.1 PALPITATIONS 02/24/2012 SARAH PATEL APRNIDI A 785.1 PALPITATIONS 03/27/2012 Ot 789.01 ABDOMINAL PAIN, RIGHT UPPER QUADRANT 06/10/2012 922.1 CONTUSION OF CHEST WALL 06/10/2012 922.1 CONTUSION OF CHEST WALL 06/10/2012 KHOA PATEL APRN A 922.1 CONTUSION OF CHEST WALL 06/10/2012 [facility], ROMAIN R 922.1 CONTUSION OF CHEST WALL 06/10/2012 DOM REBOLLEDON, ANASTACIO S 922.1 CONTUSION OF CHEST WALL 06/10/2012 GARCIA DO, YULISSA K 922.1 CONTUSION OF CHEST WALL 06/10/2012 DOM HEALTHCARE SPECIALIST, ANASTACIO S 922.1 CONTUSION OF CHEST WALL 06/10/2012 JORGE APRN, KHOA A 922.1 CONTUSION OF CHEST WALL 06/10/2012 KIM SIMMONS MD 922.1 CONTUSION OF CHEST WALL 06/10/2012 YANDEL WALKER APRN 922.1 CONTUSION OF CHEST WALL 06/10/2012 JOSE GILLIS HEALTHCARE SPECIALIST, BLADE Evans 922.1 CONTUSION OF CHEST WALL 06/10/2012 JORGE REBOLLEDON KHOA A 922.1 CONTUSION OF CHEST WALL 06/10/2012 ROMARIO BONILLA, MARGARET R 922.1 CONTUSION OF CHEST WALL 06/10/2012 JORGE BONILLA KHOA A 922.1 CONTUSION OF CHEST WALL 08/19/2012 527.7 DISTURBANCE OF SALIVARY SECRETION 08/19/2012 782.0 DISTURBANCE OF SKIN SENSATION 08/19/2012 JORGE HEALTHCARE SPECIALIST, KHOA A 527.7 DISTURBANCE OF SALIVARY SECRETION 08/19/2012 JORGE REBOLLEDON KHOA A 782.0 DISTURBANCE OF SKIN SENSATION 08/19/2012 SERVANDO VALLES APRNIA R 527.7 DISTURBANCE OF SALIVARY SECRETION 08/19/2012 SERVANDO VALLES APRNIA R 782.0 DISTURBANCE OF SKIN SENSATION 08/19/2012 EVI FERNANDES APRNNDA S 527.7 DISTURBANCE OF SALIVARY SECRETION 08/19/2012 DOM REBOLLEDON, ANASTACIO S 782.0 DISTURBANCE OF SKIN SENSATION 08/19/2012 GARCIA DO, YULISSA K 527.7 DISTURBANCE OF SALIVARY SECRETION 08/19/2012 GARCIA DO, YULISSA K 782.0 DISTURBANCE OF SKIN SENSATION 08/19/2012 DOM HEALTHCARE SPECIALIST, ANASTACIO S 527.7 DISTURBANCE OF SALIVARY SECRETION 08/19/2012 DOM HEALTHCARE SPECIALIST, ANASTACIO S 782.0 DISTURBANCE OF SKIN SENSATION 08/19/2012 JORGE BONILLA KHOA A 527.7 DISTURBANCE OF SALIVARY SECRETION 08/19/2012 JORGE HEALTHCARE SPECIALIST, KHOA A 782.0 DISTURBANCE OF SKIN SENSATION 08/19/2012 KIM SIMMONS MD 527.7 DISTURBANCE OF SALIVARY SECRETION 08/19/2012 KIM SIMMONS MD 782.0 DISTURBANCE OF SKIN SENSATION 08/19/2012 AARON BONILLA, YANDEL T 527.7 DISTURBANCE OF SALIVARY SECRETION 08/19/2012 AARON CHAD YANDEL T 782.0 DISTURBANCE OF SKIN SENSATION 08/19/2012 GARCIA CASHERO HEALTHCARE SPECIALIST, BLADE N 527.7 DISTURBANCE OF SALIVARY SECRETION 08/19/2012 GARCIA CASHERO HEALTHCARE SPECIALIST, BLADE N 782.0 DISTURBANCE OF SKIN SENSATION 08/19/2012 JORGE HEALTHCARE SPECIALIST, KHOA A 527.7 DISTURBANCE OF SALIVARY SECRETION 08/19/2012 JORGE HEALTHCARE SPECIALIST, KHOA A 782.0 DISTURBANCE OF SKIN SENSATION 08/19/2012 ROMARIO HEALTHCARE SPECIALIST, MARGARET R 527.7 DISTURBANCE OF SALIVARY SECRETION 08/19/2012 ROMARIO HEALTHCARE SPECIALIST, MARGARET R 782.0 DISTURBANCE OF SKIN SENSATION 08/19/2012 JORGE BONILLA, KHOA A 527.7 DISTURBANCE OF SALIVARY SECRETION 08/19/2012 JORGE HEALTHCARE SPECIALIST, KHOA A 782.0 DISTURBANCE OF SKIN SENSATION 09/16/2012 JORGE REBOLLEDON, KHOA A 626.1 OLIGOMENORRHEA 09/16/2012 JORGE BONILLA, KHOA A 627.8 PERIMENOPAUSE 09/16/2012 BRENDAN VALLES APRNRICIA R 626.1 OLIGOMENORRHEA 09/16/2012 SERVANDO VALLES APRNIA R 627.8 PERIMENOPAUSE 09/16/2012 DOM BONILLA ANASTACIO S 626.1 OLIGOMENORRHEA 09/16/2012 DOM BONILLA, ANASTACIO S 627.8 PERIMENOPAUSE 09/16/2012 GARCIA DO, YULISSA K 626.1 OLIGOMENORRHEA 09/16/2012 GARCIA DO, YULISSA K 627.8 PERIMENOPAUSE 09/16/2012 DOM BONILLA, ANASTACIO S 626.1 OLIGOMENORRHEA 09/16/2012 DOM BONILLA, ANASTACIO S 627.8 PERIMENOPAUSE 09/16/2012 JORGE BONILLA, KHOA A 626.1 OLIGOMENORRHEA 09/16/2012 JORGE BONILLA, KHOA A 627.8 PERIMENOPAUSE 09/16/2012 KIM SIMMONS MD 626.1 OLIGOMENORRHEA 09/16/2012 KIM SIMMONS MD 627.8 PERIMENOPAUSE 09/16/2012 YANDEL WALKER APRN 626.1 OLIGOMENORRHEA 09/16/2012 YANDEL WALKER APRN 627.8 PERIMENOPAUSE 09/16/2012 JOSE GILLIS HEALTHCARE SPECIALIST, BLADE N 626.1 OLIGOMENORRHEA 09/16/2012 GARCIA CASHERO HEALTHCARE SPECIALIST, BLADE N 627.8 PERIMENOPAUSE 09/16/2012 JORGE HEALTHCARE SPECIALIST, KHOA A 626.1 OLIGOMENORRHEA 09/16/2012 JORGE HEALTHCARE SPECIALIST, KHOA A 627.8 PERIMENOPAUSE 09/16/2012 ROMARIO BONILLA, MARGARET R 626.1 OLIGOMENORRHEA 09/16/2012 ROMARIO HEALTHCARE SPECIALIST, MARGARET R 627.8 PERIMENOPAUSE 09/16/2012 JORGE HEALTHCARE SPECIALIST, KHOA A 626.1 OLIGOMENORRHEA 09/16/2012 JORGE HEALTHCARE SPECIALIST, KHOA A 627.8 PERIMENOPAUSE 04/19/2013 ROMAIN VALLES APRN R 780.4 DIZZINESS AND VERTIGO 04/19/2013 EVI FERNANDES APRNNDA S 780.4 DIZZINESS AND VERTIGO 04/19/2013 YULISSA GARCIA DO 780.4 DIZZINESS AND VERTIGO 04/19/2013 KEISHA FERNANDES APRNA S 780.4 DIZZINESS AND VERTIGO 04/19/2013 JORGE APRN, KHOA A 780.4 DIZZINESS AND VERTIGO 04/19/2013 KIM SIMMONS MD 780.4 DIZZINESS AND VERTIGO 04/19/2013 YANDEL WALKER APRN 780.4 DIZZINESS AND VERTIGO 04/19/2013 JOSE GILLIS APRN, BLADE N 780.4 DIZZINESS AND VERTIGO 04/19/2013 JORGE APRN, KHOA A 780.4 DIZZINESS AND VERTIGO 04/19/2013 UNA DOSS APRNINA R 780.4 DIZZINESS AND VERTIGO 04/19/2013 JORGE APRN, KHOA A 780.4 DIZZINESS AND VERTIGO 05/27/2013 KEISHA FERNANDES APRNA S 381.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 05/27/2013 GARCIA DO, YULISSA K 381.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 05/27/2013 KEISHA FERANNDES APRNA S 381.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 05/27/2013 JORGE BONILLA, KHOA A 381.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 05/27/2013 KIM SIMMONS MD 381.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 05/27/2013 YANDEL WALKER APRN 381.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 05/27/2013 BLADE ROWELL APRN 381.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 05/27/2013 JORGE BONILLA, KHOA A 381.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 05/27/2013 MARGARET DOSS APRN R 381.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 05/27/2013 JORGE BONILLA, KHOA A 381.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 06/27/2013 YULISSA GARCIA DO K V04.81 FLU SHOT 06/27/2013 ANASTACIO FERNANDES APRN S V04.81 FLU SHOT 06/27/2013 JORGE BONILLA, KHOA A V04.81 FLU SHOT 06/27/2013 KIM SIMMONS MD V04.81 FLU SHOT 06/27/2013 YANDEL WALKER APRN V04.81 FLU SHOT 06/27/2013 BLADE ROWELL APRN V04.81 FLU SHOT 06/27/2013 JORGE BONILLA, KHOA A V04.81 FLU SHOT 06/27/2013 MARGARET DOSS APRN R V04.81 FLU SHOT 06/27/2013 KHOA PATEL APRN A V04.81 FLU SHOT 08/02/2013 ANASTACIO FERNANDES APRN S 338.21 CHRONIC PAIN DUE TO TRAUMA 08/02/2013 KHOA PATEL APRN A 338.21 CHRONIC PAIN DUE TO TRAUMA 08/02/2013 KIM SIMMONS MD 338.21 CHRONIC PAIN DUE TO TRAUMA 08/02/2013 YANDEL WALKER APRN 338.21 CHRONIC PAIN DUE TO TRAUMA 08/02/2013 BLADE ROWELL APRN 338.21 CHRONIC PAIN DUE TO TRAUMA 08/02/2013 KHOA PATEL APRN A 338.21 CHRONIC PAIN DUE TO TRAUMA 08/02/2013 ROM[facility]IO HEALTHCARE SPECIALIST, MARGARET R 338.21 CHRONIC PAIN DUE TO TRAUMA 08/02/2013 KHOA PATEL APRN A 338.21 CHRONIC PAIN DUE TO TRAUMA 11/22/2013 KMI SIMMONS MD 346.90 HEADACHE, MIGRAINE 11/22/2013 KIM SIMMONS MD E880.1 ACCIDENTAL FALL ON OR FROM SIDEWALK CURB 11/22/2013 YANDEL WALKER APRN 346.90 HEADACHE, MIGRAINE 11/22/2013 YANDEL WALKER APRN E880.1 ACCIDENTAL FALL ON OR FROM SIDEWALK CURB 11/22/2013 GARCIABLADE MCGRAW APRN N 346.90 HEADACHE, MIGRAINE 11/22/2013 GARCIA GIRISHBLADE MOISE APRN N E880.1 ACCIDENTAL FALL ON OR FROM SIDEWALK CURB 11/22/2013 KHOA PATEL APRN A 346.90 HEADACHE, MIGRAINE 11/22/2013 KHOA PATEL APRN A E880.1 ACCIDENTAL FALL ON OR FROM SIDEWALK CURB 11/22/2013 MARGARET DOSS APRN R 346.90 HEADACHE, MIGRAINE 11/22/2013 UNA DOSS APRNINA R E880.1 ACCIDENTAL FALL ON OR FROM SIDEWALK CURB 11/22/2013 KHOA PATEL APRN A 346.90 HEADACHE, MIGRAINE 11/22/2013 KHOA PATEL APRN A E880.1 ACCIDENTAL FALL ON OR FROM SIDEWALK CURB 04/24/2014 BLADE ROWELL APRN N 379.91 PAIN IN OR AROUND EYE 04/24/2014 KHOA PATEL APRN A 379.91 PAIN IN OR AROUND EYE 04/24/2014 MARGARET DOSS APRN R 379.91 PAIN IN OR AROUND EYE 04/24/2014 KHOA PATEL APRN A 379.91 PAIN IN OR AROUND EYE 09/14/2014 MARGARET DOSS APRN R 698.9 UNSPECIFIED PRURITIC DISORDER 09/14/2014 KHOA PATEL APRN A 698.9 UNSPECIFIED PRURITIC DISORDER 09/25/2014 Ot 473.0 09/25/2014 Ot 473.2 09/25/2014 Ot 473.3 09/25/2014 Ot 850.9 09/25/2014 Ot E000.8 09/25/2014 Ot E849.0 09/25/2014 Ot E928.9 09/25/2014 Ot V76.12 09/25/2014 KHOA APTEL HEALTHCARE SPECIALIST Ot 626.1 09/25/2014 KHOA PATEL HEALTHCARE SPECIALIST Ot 627.8 09/25/2014 KHOA PATEL APRN Ot V76.10 09/25/2014 KHOA PATEL APRN Ot V76.12 10/10/2014 Ot 473.0 10/10/2014 Ot 473.2 10/10/2014 Ot 473.3 10/10/2014 Ot 850.9 10/10/2014 Ot E000.8 10/10/2014 Ot E849.0 10/10/2014 Ot E928.9 10/10/2014 Ot V76.12 10/10/2014 KHOA PATEL APRN Ot 626.1 10/10/2014 KHOA PATEL APRN Ot 627.8 10/10/2014 KHOA PATEL APRN Ot V76.10 10/10/2014 KHOA PATEL APRN Ot V76.12 10/10/2014 KHOA PATEL HEALTHCARE SPECIALIST Ot V76.12 10/12/2014 MADYSON ROTH MD Ot 784.0 02/06/2015 YANDEL BALDERAS DO Ot 300.00 ANXIETY STATE NOS 02/06/2015 YANDEL BALDERAS DO Ot 300.01 PANIC DISORDER WITHOUT AGORAPHOBIA 04/29/2015 Ot 473.0 04/29/2015 Ot 473.2 04/29/2015 Ot 473.3 04/29/2015 Ot 850.9 04/29/2015 Ot E000.8 04/29/2015 Ot E849.0 04/29/2015 Ot E928.9 04/29/2015 Ot V76.12 04/29/2015 KHOA PATEL HEALTHCARE SPECIALIST Ot 626.1 04/29/2015 KHOA PATEL APRN Ot 627.8 04/29/2015 KHOA PATEL APRN Ot V76.10 04/29/2015 KHOA PATEL APRN Ot V76.12 04/29/2015 JORGEKHOA APRN Ot V76.12 04/29/2015 MADYSON ROTH MD Ot 784.0 04/29/2015 Ot 473.0 04/29/2015 Ot 473.2 04/29/2015 Ot 473.3 04/29/2015 Ot 850.9 04/29/2015 Ot E000.8 04/29/2015 Ot E849.0 04/29/2015 Ot E928.9 04/29/2015 Ot V76.12 04/29/2015 KHOA PATEL HEALTHCARE SPECIALIST Ot 626.1 04/29/2015 JORGEKHOA HEALTHCARE SPECIALIST Ot 627.8 04/29/2015 KHOA PATEL HEALTHCARE SPECIALIST Ot V76.10 04/29/2015 JORGEKHOA HEALTHCARE SPECIALIST Ot V76.12 04/29/2015 JORGESARAHKHOA Fredis HEALTHCARE SPECIALIST Ot V76.12 04/29/2015 IRA ANNA, MADYSON Taylor Ot 784.0 05/07/2015 WAYNE HERNDON DO Ot K62.5 05/07/2015 WAYNE HERNDON DO Ot Z01.818 05/07/2015 WAYNE HERNDON DO Ot K62.5 05/07/2015 WAYNE HERNDON DO Ot Z01.818 05/07/2015 WAYNE HERNDON DO Ot K52.9 NONINFECTIVE GASTROENTERITIS AND COLITIS 07/12/2015 Ot 473.0 07/12/2015 Ot 473.2 07/12/2015 Ot 473.3 07/12/2015 Ot 850.9 07/12/2015 Ot E000.8 07/12/2015 Ot E849.0 07/12/2015 Ot E928.9 07/12/2015 Ot V76.12 07/12/2015 KHOA PATEL HEALTHCARE SPECIALIST Ot 626.1 07/12/2015 JORGEKHOA HEALTHCARE SPECIALIST Ot 627.8 07/12/2015 JORGEKHOA HEALTHCARE SPECIALIST Ot V76.10 07/12/2015 JORGE KHOA Fred[facility] HEALTHCARE SPECIALIST Ot V76.12 07/12/2015 JORGE KHOA [facility] SPECIALIST Ot V76.12 07/12/2015 IRA ANNA, MADYSON Taylor Ot 784.0 07/12/2015 WAYNE HERNDON DO Ot K62.5 07/12/2015 WAYNE HERNDON DO Ot Z01.818 10/08/2015 Ot V76.12 OTH SCREEN MAMMO-MALIGN NEOPLASM OF DANDY 10/08/2015 KHOA PATEL HEALTHCARE SPECIALIST Ot 626.1 SCANTY MENSTRUATION 10/08/2015 KHOA PATEL HEALTHCARE SPECIALIST Ot 627.8 MENOPAUSAL DISORDER NEC 10/08/2015 KHOA PATEL HEALTHCARE SPECIALIST Ot V76.10 SCRN MALIGN NEOP, BRST SCREENING, NOS 10/08/2015 KHOA PATEL HEALTHCARE SPECIALIST Ot V76.12 OTH SCREEN MAMMO-MALIGN NEOPLASM OF DANDY 10/08/2015 KHOA PATEL HEALTHCARE SPECIALIST Ot V76.12 OTH SCREEN MAMMO-MALIGN NEOPLASM OF DANDY 10/08/2015 IRA ANNA, MADYSON Taylor Ot 784.0 HEADACHE 10/08/2015 WAYNE HERNDON DO Ot K62.5 HEMORRHAGE OF ANUS AND RECTUM 10/08/2015 WAYNE HERNDON DO Ot Z01.818 ENCOUNTER FOR OTHER PREPROCEDURAL EXAMIN 10/10/2015 FRIEDA SAWANT HEALTHCARE SPECIALIST Ot Z12.31 ENCNTR SCREEN MAMMOGRAM FOR MALIGNANT NE 10/28/2015 FRIEDA SAWANT HEALTHCARE SPECIALIST Ot Z12.31 ENCNTR SCREEN MAMMOGRAM FOR MALIGNANT NE 11/05/2015 FRIEDA SAWANT HEALTHCARE SPECIALIST Ot Z12.31 ENCNTR SCREEN MAMMOGRAM FOR MALIGNANT NE 10/14/2016 Ot V76.12 OTH SCREEN MAMMO-MALIGN NEOPLASM OF DANDY 10/14/2016 KHOA PATEL HEALTHCARE SPECIALIST Ot 626.1 SCANTY MENSTRUATION 10/14/2016 KHOA PATEL HEALTHCARE SPECIALIST Ot 627.8 MENOPAUSAL DISORDER NEC 10/14/2016 KHOA PATEL HEALTHCARE SPECIALIST Ot V76.10 SCRN MALIGN NEOP, BRST SCREENING, NOS 10/14/2016 KHOA PATEL HEALTHCARE SPECIALIST Ot V76.12 OTH SCREEN MAMMO-MALIGN NEOPLASM OF DANDY 10/14/2016 KHOA PATEL HEALTHCARE SPECIALIST Ot V76.12 OTH SCREEN MAMMO-MALIGN NEOPLASM OF DANDY 10/14/2016 IRA ANNA, MADYSON Taylor Ot 784.0 HEADACHE 10/14/2016 WAYNE HERNDON DO Ot K62.5 HEMORRHAGE OF ANUS AND RECTUM 10/14/2016 WAYNE HERNDON DO Ot Z01.818 ENCOUNTER FOR OTHER PREPROCEDURAL EXAMIN 10/14/2016 FRIEDA SAWANT APRN Ot Z12.31 ENCNTR SCREEN MAMMOGRAM FOR MALIGNANT NE 10/14/2016 Ot V76.12 OTH SCREEN MAMMO-MALIGN NEOPLASM OF DANDY 10/14/2016 JORGEKHOA [facility] SPECIALIST Ot 626.1 SCANTY MENSTRUATION 10/14/2016 KHOA PATEL HEALTHCARE SPECIALIST Ot 627.8 MENOPAUSAL DISORDER NEC 10/14/2016 KHOA PATEL HEALTHCARE SPECIALIST Ot V76.10 SCRN MALIGN NEOP, BRST SCREENING, NOS 10/14/2016 KHOA PATEL HEALTHCARE SPECIALIST Ot V76.12 OTH SCREEN MAMMO-MALIGN NEOPLASM OF DANDY 10/14/2016 KHOA PATEL HEALTHCARE SPECIALIST Ot V76.12 OTH SCREEN MAMMO-MALIGN NEOPLASM OF DANDY 10/14/2016 IRA ANNA, MADYSON Taylor Ot 784.0 HEADACHE 10/14/2016 WAYNE HERNDON DO Ot K62.5 HEMORRHAGE OF ANUS AND RECTUM 10/14/2016 WAYNE HERNDON DO Ot Z01.818 ENCOUNTER FOR OTHER PREPROCEDURAL EXAMIN 10/14/2016 FRIEDA SAWANT APRN Ot Z12.31 ENCNTR SCREEN MAMMOGRAM FOR MALIGNANT NE 10/15/2016 Ot V76.12 OTH SCREEN MAMMO-MALIGN NEOPLASM OF DANDY 10/15/2016 KHOA PATEL HEALTHCARE SPECIALIST Ot 626.1 SCANTY MENSTRUATION 10/15/2016 KHOA PATEL HEALTHCARE SPECIALIST Ot 627.8 MENOPAUSAL DISORDER NEC 10/15/2016 KHOA PATEL HEALTHCARE SPECIALIST Ot V76.10 SCRN MALIGN NEOP, BRST SCREENING, NOS 10/15/2016 KHOA PATEL HEALTHCARE SPECIALIST Ot V76.12 OTH SCREEN MAMMO-MALIGN NEOPLASM OF DANDY 10/15/2016 KHOA PATEL HEALTHCARE SPECIALIST Ot V76.12 OTH SCREEN MAMMO-MALIGN NEOPLASM OF DANDY 10/15/2016 IRA ANNA, MADYSON Taylor Ot 784.0 HEADACHE 10/15/2016 WAYNE HERNDON DO Ot K62.5 HEMORRHAGE OF ANUS AND RECTUM 10/15/2016 WAYNE HERNDON DO Ot Z01.818 ENCOUNTER FOR OTHER PREPROCEDURAL EXAMIN 10/15/2016 FRIEDA SAWANT APRN Ot Z12.31 ENCNTR SCREEN MAMMOGRAM FOR MALIGNANT NE Procedures Code [place] [address] MAMMOGRAM, SCREENING 09/19/2012 G0008 FLU ADMINISTRATION (MEDICARE ONLY) 06/27/2013 40952 MAMMOGRAM, SCREENING 09/14/2013 58377 XRAY SKULL LESS THAN 4 VIEWS 11/23/2013 09399 ROUTINE VENIPUNCTURE 04/02/2014 02907 TSH 04/02/2014 81948 CBC 04/02/2014 6789003 GFR CALC (RESULT ONLY) 04/02/2014 35920 CMP 04/02/2014 90464 MAMMOGRAM, SCREENING 09/18/2014 Results Encounters ACCT No. Visit Date/Time Discharge Status Pt. Type Provider Facility Loc./Unit Complaint [id number] 09/18/2014 13:59:00 09/18/2014 23: 59:59 CLS Outpatient KHOA PATEL APRN [id number] 09/14/2014 13:22:00 09/14/2014 23: 59:59 CLS Outpatient MARGARET DOSS APRN [id number] 06/05/2014 10:58:00 06/05/2014 23: 59:59 CLS Outpatient KHOA PATEL APRN [id number] 04/24/2014 09:46:00 04/24/2014 23: 59:59 CLS Outpatient BLADE ROWELL APRN [id number] 04/02/2014 11:50:00 04/02/2014 23: 59:59 CLS Outpatient YANDEL WALKER APRN [id number] 11/22/2013 14:22:00 11/22/2013 23: 59:59 CLS Outpatient KIM SIMMONS MD [id number] 09/14/2013 10:23:00 09/14/2013 23: 59:59 CLS Outpatient KHOA PATEL APRN [id number] 08/02/2013 12:43:00 08/02/2013 23: 59:59 CLS Outpatient ANASTACIO FERNANDES APRN [id number] 06/27/2013 15:37:00 06/27/2013 23: 59:59 CLS Outpatient YULISSA GARCIA DO [id number] 05/27/2013 14:30:00 05/27/2013 23: 59:59 CLS Outpatient DOM CHADANASTACIO [id number] 04/19/2013 13:10:00 04/19/2013 23: 59:59 CLS Outpatient VALLES CHADROMAIN Luann [id number] 09/16/2012 10:09:00 09/16/2012 23: 59:59 CLS Outpatient KHOA PATEL APRN [id number] 08/19/2012 10:09:00 08/19/2012 23: 59:59 CLS Outpatient [id number] 06/10/2012 09:39:00 06/10/2012 23: 59:59 CLS Outpatient [id number] 04/07/2017 05:36:00 2016 23:59:59 CLS Outpatient WAYNE HERNDON DO [facility] PREOP COLONOSCOPY [id number] 10/16/2016 08:17:00 2016 23:59:59 CLS Outpatient JONY DE LA [facility] RAD SCREENING [id number] 10/08/2015 10:50:00 2015 23:59:59 CLS Outpatient FRIEDA SAWANT [facility] SPECIALIST [facility] RAD SCREENING [id number] 05/07/2015 10:06:00 2014 12:20:00 DIS Outpatient WAYNE HERNDON DO [facility] SDC BLOOD PER RECTUM [id number] 05/01/2015 05:40:00 2014 23:59:59 CLS Outpatient WAYNE HERNDON DO [facility] PREOP BLOOD FROM RECTUM [id number] 02/06/2015 15:34:00 2014 17:20:00 DIS Emergency YANDEL BALDERAS DO [facility] ER ANXIETY,BILAT LEG PAIN [id number] 10/11/2014 08:47:00 2014 23:59:59 CLS Outpatient MADYSON ROTH MD [facility] RAD RT SIDED HEAD PAIN, RT EAR PAIN [id number] 09/25/2014 09:07:00 2014 23:59:59 CLS Outpatient KHOA PATEL APRN [facility] RAD SCREENING [id number] 10/06/2013 09:26:00 2013 23:59:59 CLS Outpatient KHAO PATEL HEALTHCARE SPECIALIST [facility] RAD SCREENING [id number] 10/06/2012 08:55:00 2012 23:59:59 CLS Outpatient KHOA PATEL HEALTHCARE SPECIALIST [facility] RAD SCREENING [id number] 04/13/2017 12:00:00 PEN Preadmit WAYNE HERNDON DO [facility] ENDO MELENA [id number] 03/27/2012 03:55:00 Document Registration [id number] 10/05/2011 07:54:00 Document Registration [id number] 02/25/2010 17:25:00 Document Registration
[2017-04-13] MEDS ORDERED: LACTATED RINGERS 1,000 ML IV STA (09:38)
[2017-04-13] MEDS ORDERED: HURRICAINE EXT TUBE (BENZOCAINE) XX ONE (10:00)
--- NOTE | 2017-04-13 10:24 | Progress Note-Post Operative ---
Post-Operative Progess Note Surgeon (s)/Ultrasound Technician (s) Surgeon WAYNE HERNDON DO Ultrasound Technician: na Pre-Operative Diagnosis melena, occult + stool Post-Operative Diagnosis gastrits with small erosions rectal inflammation Procedure & Operative Findings Date of Procedure 04/13/17 Procedure Performed/Findings egd c biopsies, colonoscopy with cold biopsy Anesthesia Type per button station worker Estimated Blood Loss Estimated blood loss (mL): scant Specimens/Packing Specimens Removed antrum x 2, rectum WAYNE HERNDON DO Apr 13, 2017 10:24
[2017-04-13] MEDS ORDERED: PANT40TA2 PO (10:25)
--- NOTE | 2017-04-13 10:26 | Discharge Inst-Simple/Standard ---
Discharge Inst-Standard Discharge Medications New, Converted or Re-Newed RX: Transmitted to Pharmacy Patient Instructions/Follow Up Plan of Care/Instructions/FU: 2 weeks Belinda Activity as Tolerated: Yes Discharge Diet: Regular Diet WAYNE HERNDON DO Apr 13, 2017 10:26
[2017-04-13 10:40] VITALS: BP 124/76
[2017-04-13 11:10] VITALS: BP 124/76
[2017-04-13 11:15] VITALS: BP 137/84
--- NOTE | 2017-04-13 21:23 | OPERATIVE REPORT ---
DATE OF SERVICE: 04/13/2017 PREOPERATIVE DIAGNOSIS: Melena, occult positive stools. POSTOPERATIVE DIAGNOSIS: Melena, occult positive stools. PROCEDURE: EGD with biopsies, colonoscopy with cold biopsy of the rectum. SURGEON: Wayne Trevino DO ANESTHESIA: Per BUSINESS SUPPORT PROFESSIONAL. ESTIMATED BLOOD LOSS: Scant. COMPLICATIONS: None. INDICATIONS: The patient is a 52-year-old female with history of colitis. She has had recent dark bloody stools and occult positive stools. She understands risks and benefits of procedures and wished to proceed with procedure. Consent was signed in the chart. PROCEDURE: The patient was taken to the endoscopy suite, placed in left lateral recumbent position. Timeout was performed. Scope was inserted in mouth, down the esophagus, stomach and into the duodenum without difficulty. There are no polyps, masses or ulcerations within the duodenum. The scope was slowly retracted back into the stomach, which had some erythematous changes and also some small erosions. Couple biopsies of the antrum were obtained. The scope was retroflexed noting a small polyp and some slight erythematous changes, no hiatal hernia. Scope was returned to its normal position, slowly withdrawn to the distal esophagus which had no polyps, masses or ulcerations. Scope was slowly retracted until completely removed, noting no other pathology. Digital rectal exam was performed. There were no palpable polyps, masses or ulcerations. Scope was inserted in the rectum which noted some erythematous changes. Scope was inserted and advanced all way to cecum with minimal difficulty. Prep was adequate. There were no polyps, masses or ulcerations in the cecum. The ileocecal valve was intubated with the scope and the scope was advanced into the distal ileum which had normal appearance. There are no polyps, masses or ulcerations. Scope was slowly retracted back into the colon and continued to be retracted. There are no polyps, masses or ulcerations within the ascending colon, transverse colon, descending colon and sigmoid colon. Once in the rectum, scope was also retroflexed noting the erythematous changes. The scope was then returned to its normal position and biopsy of the inflammation was obtained. Scope was then slowly retracted until completely removed. The patient tolerated the procedure well without any complications. RECOMMENDATIONS: He will follow up in the office in 2 weeks to discuss pathology results. She also will be started on Protonix 40 mg daily. We will consider GI consultation with her history of colitis and her past Lialda use. Job ID: [id number] DocumentID: [id number] Dictated Date: 04/13/2017 10:29:53 Ammonia Refrigeration Worker Date: 04/13/2017 21:23:03 Dictated By: WAYNE TREVINO DO
== END 2017-04-13 11:26 | disposition home or self-care (01) ==
LOC: ENDO 09:18
PROVIDERS: ATTEND Surgery
DX: K92.1 Melena (principal); K52.9 Noninfective gastroenteritis and colitis, unspecified; K25.9 Gastric ulcer, unspecified as acute or chronic, without hemorrhage or perforation; K31.7 Polyp of stomach and duodenum

== ENCOUNTER 2022-01-01 19:18 | Emergency (ER) | payer SELFPAY ==
[~2022-01-01] VITALS: Ht 157.4 cm; Wt 60.3 kg
[~2022-01-01 19:18] MED LIST changes: +PANT40TA2 PO
--- NOTE | 2022-01-01 19:27 | ED Chest Pain ---
General Stated Complaint: CHEST PAIN History of Present Illness Date Seen by Provider: Jan 01, 2022 Time Seen by Provider: 19:27 Initial Comments 56-year-old female with no significant PMH is here with complaints of right- sided chest pain and acid reflux for the past couple of days. Patient thought her PCP in the clinic and was told the same thing but was sent here to rule out any other cardiac causes for her pain. Patient denies fever, shortness of breath, palpitations, abdominal pain, dysuria. Pain level fluctuates between 6/10 and no pain at all. Pain started day before yesterday and waxes and wanes. Allergies and Home Medications Allergies Coded Allergies: No Known Drug Allergies (Unverified , 04/08/17) Patient Home Medication List Home Medication List Reviewed: Yes Pantoprazole Sodium (Protonix) 40 Mg Tablet.dr, 40 MG PO DAILY Prescribed by: WAYNE HERNDON on 04/13/17 1025 Review of Systems Review of Systems Constitutional: no symptoms reported EENTM: No Symptoms Reported Respiratory: No Symptoms Reported Cardiovascular: Chest Pain Gastrointestinal: No Symptoms Reported Genitourinary: No Symptoms Reported Musculoskeletal: no symptoms reported Skin: no symptoms reported Psychiatric/Neurological: No Symptoms Reported Endocrine: No Symptoms Reported Hematologic/Lymphatic: No Symptoms Reported Past Dzyimzk-Eljhfl-Ocopfu Hx Seasonal Allergies Seasonal Allergies: No Past Medical History Reproductive Disorders: No Female Reproductive Disorders: Denies Sexually Transmitted Disease: No HIV/AIDS: No Loss of Vision: Denies Hearing Impairment: Denies Adverse Reaction/Blood Tranf: No Physical Exam Vital Signs Vital Signs - First Documented 01/01/22 19:46 Temp 36.8 Pulse 93 Resp 20 B/P (MAP) 169/94 (119) Pulse Ox 97 O2 Delivery Room Air Capillary Refill : Height, Weight, BMI Height: 5'1.00" Weight: 128lbs. 0.0oz. 58.695602ka; 24.2 BMI Method:Stated General Appearance: No Apparent Distress HEENT: PERRL/EOMI Neck: Normal Inspection, Non Tender Respiratory: Chest Non Tender, Lungs Clear, Normal Breath Sounds, No Accessory Muscle Use Cardiovascular: Regular Rate, Rhythm, No Edema, No Murmur Gastrointestinal: Normal Bowel Sounds, No Organomegaly, Non Tender, Soft Extremity: Normal Range of Motion Neurologic/Psychiatric: Alert, Oriented x3, No Motor/Sensory Deficits, Normal Mood/Affect Skin: Normal Color Progress/Results/Core Measures Results/Orders Lab Results Laboratory Tests Test 01/01/22 19:40 01/01/22 19:56 Range/Units White Blood Count 7.1 4.3-11.0 10^3/uL Red Blood Count 4.37 3.80-5.11 10^6/uL Hemoglobin 12.4 11.5-16.0 g/dL Hematocrit 37 35-52 % Mean Corpuscular Volume 85 80-99 fL Mean Corpuscular Hemoglobin 28 25-34 pg Mean Corpuscular Hemoglobin Concent 33 32-36 g/dL Red Cell Distribution Width 13.0 10.0-14.5 % Platelet Count 145 130-400 10^3/uL Mean Platelet Volume 11.1 9.0-12.2 fL Immature Granulocyte % (Auto) 1 % Neutrophils (%) (Auto) 57 42-75 % Lymphocytes (%) (Auto) 31 12-44 % Monocytes (%) (Auto) 6 0-12 % Eosinophils (%) (Auto) 5 0-10 % Basophils (%) (Auto) 0 0-10 % Neutrophils # (Auto) 4.0 1.8-7.8 10^3/uL Lymphocytes # (Auto) 2.2 1.0-4.0 10^3/uL Monocytes # (Auto) 0.4 0.0-1.0 10^3/uL Eosinophils # (Auto) 0.3 0.0-0.3 10^3/uL Basophils # (Auto) 0.0 0.0-0.1 10^3/uL Immature Granulocyte # (Auto) 0.1 0.0-0.1 10^3/uL Prothrombin Time 13.0 12.2-14.7 SEC INR Comment 0.9 0.8-1.4 Activated Partial Thromboplast Time 28 24-35 SEC D-Dimer <= 0.27 0.00-0.49 UG/ML Sodium Level 140 135-145 MMOL/L Potassium Level 3.8 3.6-5.0 MMOL/L Chloride Level 108 H 98-107 MMOL/L Carbon Dioxide Level 19 L 21-32 MMOL/L Anion Gap 13 5-14 MMOL/L Blood Urea Nitrogen 17 7-18 MG/DL Creatinine 0.77 0.60-1.30 MG/DL Estimat Glomerular Filtration Rate 90 BUN/Creatinine Ratio 22 Glucose Level 143 H 70-105 MG/DL Calcium Level 9.9 8.5-10.1 MG/DL Corrected Calcium 10.0 8.5-10.1 MG/DL Magnesium Level 2.0 1.6-2.4 MG/DL Total Bilirubin 0.2 0.1-1.0 MG/DL Aspartate Amino Transf (AST/SGOT) 23 5-34 U/L Alanine Aminotransferase (ALT/SGPT) 20 0-55 U/L Alkaline Phosphatase 118 40-136 U/L Troponin I < 0.028 <0.028 NG/ML B-Type Natriuretic Peptide 20.1 <100.0 PG/ML Total Protein 7.4 6.4-8.2 GM/DL Albumin 3.9 3.2-4.5 GM/DL Urine Color YELLOW Urine Clarity CLEAR Urine pH 6.0 5-9 Urine Specific [place] <=1.005 1.016-1.022 Urine Protein NEGATIVE NEGATIVE Urine Glucose (UA) NEGATIVE NEGATIVE Urine Ketones NEGATIVE NEGATIVE Urine Nitrite NEGATIVE NEGATIVE Urine Bilirubin NEGATIVE NEGATIVE Urine Urobilinogen 0.2 < = 1.0 MG/DL Urine Leukocyte Esterase 1+ H NEGATIVE Urine RBC (Auto) 2+ H NEGATIVE Urine RBC 0-2 /HPF Urine WBC 0-2 /HPF Urine Squamous Epithelial Cells 0-2 /HPF Urine Crystals NONE /LPF Urine Bacteria TRACE /HPF Urine Casts NONE /LPF Urine Mucus NEGATIVE /LPF Urine Culture Indicated NO Urine Opiates Screen NEGATIVE NEGATIVE Urine Oxycodone Screen NEGATIVE NEGATIVE Urine Methadone Screen NEGATIVE NEGATIVE Urine Propoxyphene Screen NEGATIVE NEGATIVE Urine Barbiturates Screen NEGATIVE NEGATIVE Ur Tricyclic Antidepressants Screen NEGATIVE NEGATIVE Urine Phencyclidine Screen NEGATIVE NEGATIVE Urine Amphetamines Screen NEGATIVE NEGATIVE Urine Methamphetamines Screen NEGATIVE NEGATIVE Urine Benzodiazepines Screen NEGATIVE NEGATIVE Urine Cocaine Screen NEGATIVE NEGATIVE Urine Cannabinoids Screen NEGATIVE NEGATIVE My Orders Orders - SON ROGERS MD Cbc With Automated Diff (01/01/22 19:27) Magnesium (01/01/22 19:27) Chest 1 View, Ap/Pa Only (01/01/22 19:27) Ekg Tracing (01/01/22 19:27) Comprehensive Metabolic Panel (01/01/22 19:27) Protime With Inr (01/01/22 19:27) Partial Thromboplastin Time (01/01/22 19:27) O2 (01/01/22 19:27) Monitor-Rhythm Ecg Trace Only (01/01/22 19:27) Ed Iv/Invasive Line Start (01/01/22 19:27) Bnp Yates (01/01/22 19:27) Fibrin Degradation Products (01/01/22 19:27) Troponin I Yates (01/01/22 19:27) Aspirin Chewable Tablet (Baby Aspirin Ch (01/01/22 19:30) Drug Screen Stat (Urine) (01/01/22 19:28) Ua Culture If Indicated (01/01/22 19:28) Famotidine Injection (Pepcid Injection) (01/01/22 21:45) Antacid Suspension (Mylanta Suspension (01/01/22 21:45) Medications Given in ED Current Medications Medications Dose Ordered Sig/Terrence Route Start Time Stop Time Status Last Admin Dose Admin Aspirin 324 mg ONCE ONCE PO 01/01/22 19:30 01/01/22 19:31 DC 01/01/22 19:44 324 MG Vital Signs/I&O 01/01/22 19:46 Temp 36.8 Pulse 93 Resp 20 B/P (MAP) 169/94 (119) Pulse Ox 97 O2 Delivery Room Air Progress Progress Note : Progress Note 1. ACS RULED OUT: GERD: - CXR: unremarkable - Trop/ EKG: non-ischemic - Labs normal - ASA 324mg STAT - Pepcid 20mg iv STAT - Maalox oral STAT - Prescriptions for Pepcid 20mg bid for 10 days and OTC Maalox - Follow up with PCCP in the next 3 to 7 days -The patient was seen in the ED, and treated appropriately to presentation at a specific point in time. Patient is informed that there is a possibility that disease and illness can evolve and change in acuity rapidly or slowly after patient is discharged from the ER. Precautionary advice given to the patient for immediate return to ER if symptoms worsen or do not resolve, and to seek emergency care sooner rather than later. Pt also advised on the importance of PCP follow up and compliance with management and follow up plan with PCP and/or specialist, as this is part of the management plan. Pt verbally expressed understanding. Initial ECG Impression Date: Jan 01, 2022 Initial ECG Impression Time: 19:38 Initial ECG Rate: 85 Initial ECG Rhythm: Normal Sinus Initial ECG Intervals: Normal Initial ECG Impression: Normal Initial ECG Comparisson: No Previous ECG Available Diagnostic Imaging Diagonstic Imaging: Xray Plain Films/CT/US/NM/MRI: chest Comments [facility]. [place], [place] NAME: CHIDI BALTAZAR [facility] REC#: [id number] PT STATUS: REG ER : 1965 PHYSICIAN: SON ROGERS MD ADMIT DATE: 01/01/22/ER Signed Date of Exam:01/01/22 CHEST 1 VIEW, AP/PA ONLY INDICATION: Chest pain FINDINGS: The lungs are clear. No failure, effusion or pneumothorax. IMPRESSION: No acute appearing abnormality. Dictated by: Dictated on workstation # [id number] Dict: 01/01/221946 Trans: 01/01/222000 JONE [id number] Interpreted by: KAMILLA AUSTIN Electronically signed by: KAMILLA AUSTIN 01/01/222000 Departure Impression Primary Impression: GERD (gastroesophageal reflux disease) Additional Impression: Ruled out for myocardial infarction Disposition: HOME, SELF-CARE Condition: Improved Departure-Patient Inst. Referrals: YULISSA GARCIA DO (PCP) Primary Care Physician JONY DE LA TORRE APRN (Family) Primary Care Physician Patient Instructions: Acid Reflux and Gastroesophageal Reflux Disease in Adults, Chest Pain That Is Not Caused by the Heart (DC) Add. Discharge Instructions: - Prescriptions for Pepcid 20mg bid for 10 days and OTC Maalox - Follow up with PCCP in the next 3 to 7 days - Advised to stay away from spicy foods and fried foods - Return to ER if symptoms worsen Scripts Mag Hydrox/Aluminum Hyd/Simeth (Maalox Advanced Suspension) 200 Mg-200 Mg-20 Mg/5 Ml Oral.susp 355 ML PO TIDPC for Discomfort for 7 Days, #1000 ML Prov: SON ROGERS MD 01/01/22 Famotidine (Pepcid) 20 Mg Tablet 20 MG PO BID for 10 Days, #20 TAB Prov: SON ROGERS MD 01/01/22 Work/School Note: Work Release Form Date Seen in the Emergency Department: Jan 01, 2022 Return to Work: Jan 03, 2022 SON ROGERS MD Jan 01, 2022 19:27
[2022-01-01] MEDS ORDERED: ASPIRIN 81 MG CHEW (CHILDREN'S ASA) PO ONE (19:30)
[2022-01-01 19:47] LABS: BASOPHILS % (AUTO) 0 % (0-10); EOSINOPHILS # (AUTO) 0.3 10^3/uL (0.0-0.3); EOSINOPHILS % (AUTO) 5 % (0-10); HEMATOCRIT 37 % (35-52); HEMOGLOBIN 12.4 g/dL (11.5-16.0); LYMPHOCYTES # (AUTO) 2.2 10^3/uL (1.0-4.0); LYMPHOCYTES % (AUTO) 31 % (12-44); MEAN CORPUSCULAR HEMOGLOBIN 28 pg (25-34); MEAN CORPUSCULAR HGB CONC 33 g/dL (32-36); MEAN CORPUSCULAR VOLUME 85 fL (80-99); MEAN PLATELET VOLUME 11.1 fL (9.0-12.2); MONOCYTES # (AUTO) 0.4 10^3/uL (0.0-1.0); MONOCYTES % (AUTO) 6 % (0-12); NEUTROPHILS % (AUTO) 57 % (42-75); PLATELET COUNT 145 10^3/uL (130-400); WHITE BLOOD COUNT 7.1 10^3/uL (4.3-11.0)
[2022-01-01 19:54] LABS: ALBUMIN 3.9 GM/DL (3.2-4.5); POTASSIUM 3.8 MMOL/L (3.6-5.0)
[2022-01-01 19:55] LABS: CALCIUM 9.9 MG/DL (8.5-10.1)
[2022-01-01 19:57] LABS: INR 0.9 (0.8-1.4); TOTAL PROTEIN 7.4 GM/DL (6.4-8.2)
[2022-01-01 19:58] LABS: BILIRUBIN,TOTAL 0.2 MG/DL (0.1-1.0)
[2022-01-01 20:00] LABS: CREATININE SERUM 0.77 MG/DL (0.60-1.30)
--- NOTE | 2022-01-01 20:00 | Diagnostic Imaging Report ---
INDICATION: Chest pain FINDINGS: The lungs are clear. No failure, effusion or pneumothorax. IMPRESSION: No acute appearing abnormality. Dictated by: Dictated on workstation # [id number]
[2022-01-01 20:01] LABS: BILIRUBIN,URINE NEGATIVE (NEGATIVE); CLARITY,URINE CLEAR; COLOR,URINE YELLOW; GLUCOSE, URINE (UA) NEGATIVE (NEGATIVE); KETONES,URINE NEGATIVE (NEGATIVE); LEUKOCYTE ESTERASE ,URINE 1+ (NEGATIVE); NITRITE,URINE NEGATIVE (NEGATIVE); PROTEIN,URINE NEGATIVE (NEGATIVE)
[2022-01-01 20:16] LABS: RBC,URINE 0-2 /HPF; WBC,URINE 0-2 /HPF
[2022-01-01 20:17] LABS: BACTERIA,URINE TRACE /HPF; SQUAMOUS EPITHELIAL CELL,UR 0-2 /HPF
[2022-01-01 20:25] LABS: AMPHETAMINE SCREEN, URINE NEGATIVE (NEGATIVE); BARBITURATE SCREEN URINE NEGATIVE (NEGATIVE); BENZODIAZEPINES SCREEN URINE NEGATIVE (NEGATIVE); CANNABINOID SCREEN, URINE NEGATIVE (NEGATIVE); COCAINE SCREEN URINE NEGATIVE (NEGATIVE); METHADONE STAT NEGATIVE (NEGATIVE); OPIATE SCREEN URINE NEGATIVE (NEGATIVE); OXYCODONE STAT NEGATIVE (NEGATIVE); PROPOXYPHENE STAT NEGATIVE (NEGATIVE); TRICYCLIC ANTIDEPRESSANTS SCRE NEGATIVE (NEGATIVE)
[2022-01-01] MEDS ORDERED: FAMOTIDINE 20MG/2ML IV (PEPCID) IVP ONE (21:45)
[2022-01-01] MEDS ORDERED: ANTACID SUSP 30 ML UDC (MYLANTA) PO ONE (21:45)
[2022-01-01] MEDS ORDERED: MAG355OR16 PO (21:57)
[2022-01-01] MEDS ORDERED: FAMO-119 PO (21:57)
[2022-01-01 22:42] VITALS: BP 130/77
== END 2022-01-01 22:36 | disposition home or self-care (01) ==
LOC: EDUNIT# 19:18 → ER 19:24
DX: K21.9 Gastro-esophageal reflux disease without esophagitis (principal)
CPT/HCPCS: 36415; 71045; 80053; 80306; 81000; 83735; 83880; 84484; 85025; 85379; 85610; 85730; 93005; 93041

== ENCOUNTER 2022-01-04 05:35 | Emergency (ER) | payer SELFPAY ==
[~2022-01-04] VITALS: Ht 157.4 cm; Wt 60.3 kg
[~2022-01-04 05:35] MED LIST changes: +FAMO-119 PO; +MAG355OR16 PO
[2022-01-04] MEDS ORDERED: LIDOCAINE 2% VISCOUS 15 ML UDC PO ONE (06:30)
[2022-01-04] MEDS ORDERED: ANTACID SUSP 30 ML UDC (MYLANTA) PO ONE (06:30)
[2022-01-04] MEDS ORDERED: ONDANSETRON 4 MG/2 ML (SDV) Z0FRAN IVP ONE (06:30)
[2022-01-04] MEDS ORDERED: NS IV 1000 ML 1,000 ML IV ONE (06:30)
[2022-01-04] MEDS ORDERED: FAMOTIDINE 20 MG (PEPCID) TABLET PO ONE (06:30)
[2022-01-04 06:41] LABS: EOSINOPHILS % (AUTO) 0 % (0-10)
[2022-01-04 06:43] LABS: BASOPHILS % (AUTO) 0 % (0-10); HEMATOCRIT 41 % (35-52); HEMOGLOBIN 13.4 g/dL (11.5-16.0); LYMPHOCYTES # (AUTO) 0.3 10^3/uL (1.0-4.0); LYMPHOCYTES % (AUTO) 3 % (12-44); MEAN CORPUSCULAR HEMOGLOBIN 28 pg (25-34); MEAN CORPUSCULAR HGB CONC 33 g/dL (32-36); MEAN CORPUSCULAR VOLUME 86 fL (80-99); MEAN PLATELET VOLUME 10.9 fL (9.0-12.2); MONOCYTES # (AUTO) 0.2 10^3/uL (0.0-1.0); MONOCYTES % (AUTO) 2 % (0-12); NEUTROPHILS # (AUTO) 8.7 10^3/uL (1.8-7.8); NEUTROPHILS % (AUTO) 94 % (42-75); PLATELET COUNT 105 10^3/uL (130-400); WHITE BLOOD COUNT 9.2 10^3/uL (4.3-11.0)
--- NOTE | 2022-01-04 06:50 | ED Abdominal Pain ---
General Chief Complaint: Abdominal/GI Problems Stated Complaint: ABD/BACK PAIN,N/V,DIARRHEA,CHILLS Nursing Triage Note: c/o n/v/d, abdominal/back pain, chills x1 day Source of Information: Patient Exam Limitations: No Limitations History of Present Illness Date Seen by Provider: Jan 04, 2022 Time Seen by Provider: 06:00 Initial Comments Patient to ER by private conveyance from home with her significant other and chief complaint that she is having some intermittent epigastric abdominal pain burning nausea and vomiting of clear fluids for the past several days. She was worked up and on , 3 to 4 days ago in the ER and had an unremarkable evaluation. She was sent home with Protonix which she did finally take a dose last night. She did not feel like it helped. She has no history of abdominal surgeries or trauma. No fevers but she does claim some chills. She is not having constipation. No bloody emesis. Some loose stools. Patient had an EGD and colonoscopy by Dr. Herndon 2016, 5 years ago with specimens from the colon revealing focal active colitis that could not totally exclude IBD. Stomach biopsies did not reveal any H. pylori-like organisms. Allergies and Home Medications Allergies Coded Allergies: No Known Drug Allergies (Unverified , 04/08/17) Patient Home Medication List Home Medication List Reviewed: Yes Famotidine (Pepcid) 20 Mg Tablet, 20 MG PO BID Prescribed by: SON ROGERS MD on 01/01/222156 Mag Hydrox/Aluminum Hyd/Simeth (Maalox Advanced Suspension) 200 Mg-200 Mg-20 Mg/5 Ml Oral.susp, 355 ML PO TIDPC Prescribed by: SON ROGERS MD on 01/01/222156 Pantoprazole Sodium (Protonix) 40 Mg Tablet.dr, 40 MG PO DAILY Prescribed by: WAYNE HERNDON on 04/13/17 1025 Review of Systems Review of Systems Constitutional: No chills, No diaphoresis EENTM: No Blurred Vision, No Double Vision Respiratory: Denies Cough, Denies Shortness of Air Cardiovascular: Denies Chest Pain, Denies Lightheadedness Gastrointestinal: See HPI; Denies Abdomen Distended; Abdominal Pain; Denies Constipated, Denies Diarrhea; Nausea; Denies Vomiting Genitourinary: Denies Discharge, Denies Drainage, Denies Frequency; Flank Pain Musculoskeletal: No back pain, No joint pain Skin: No change in color, No pruritus, No rash Psychiatric/Neurological: Denies Anxiety, Denies Depressed All Other Systems Reviewed Negative Unless Noted: Yes Past Pnesawl-Pgiiky-Qyivfq Hx Patient Social History Tobacco Use?: No Substance use?: No Alcohol Use?: No Pt feels they are or have been: No Immunizations Up To Date First/Initial COVID19 Vaccinat: 02/01 Second COVID19 Vaccination Harjeet: 02/01 Seasonal Allergies Seasonal Allergies: No Past Medical History Surgery/Hospitalization HX: denies Reproductive Disorders: No Female Reproductive Disorders: Denies Sexually Transmitted Disease: No HIV/AIDS: No Loss of Vision: Denies Hearing Impairment: Denies Adverse Reaction/Blood Tranf: No Physical Exam Vital Signs Vital Signs - First Documented 01/04/22 05:44 Temp 37.0 Pulse 91 Resp 18 B/P (MAP) 165/79 (107) Pulse Ox 98 O2 Delivery Room Air Capillary Refill : Less Than 3 Seconds Height/Weight/BMI Height: 5'1.00" Weight: 128lbs. 0.0oz. 58.874323cy; 24.00 BMI Method:Stated General Appearance: WD/WN, mild distress HEENT: PERRL/EOMI; No pharynx normal (Mildly dry oral mucosa) Neck: full range of motion, supple, normal inspection Respiratory: no respiratory distress, no accessory muscle use Cardiovascular: normal peripheral pulses, regular rate, rhythm, no edema Gastrointestinal: normal bowel sounds, soft, tenderness (Epigastric region and right upper quadrant especially but all over is mildly tender to palpation. Dang sign noted, negative however for tenderness over McBurney's point no Rovsing sign. No mesenteric signs.), other (Negative for Serge's punch bilateral CVA) Extremities: normal range of motion, normal capillary refill Back: no CVA tenderness, no vertebral tenderness Neurologic/Psychiatric: alert, normal mood/affect, oriented x 3 Skin: normal color, warm/dry Progress/Results/Core Measures Results/Orders Lab Results Laboratory Tests Test 01/04/22 05:59 01/04/22 06:29 Range/Units Urine Color YELLOW Urine Clarity CLEAR Urine pH 6.5 5-9 Urine Specific [place] 1.020 1.016-1.022 Urine Protein 1+ H NEGATIVE Urine Glucose (UA) TRACE H NEGATIVE Urine Ketones NEGATIVE NEGATIVE Urine Nitrite NEGATIVE NEGATIVE Urine Bilirubin 1+ H NEGATIVE Urine Urobilinogen 0.2 < = 1.0 MG/DL Urine Leukocyte Esterase NEGATIVE NEGATIVE Urine RBC (Auto) 3+ H NEGATIVE Urine RBC 25-50 H /HPF Urine WBC RARE /HPF Urine Squamous Epithelial Cells RARE /HPF Urine Crystals PRESENT H /LPF Urine Amorphous Sediment FEW ODILIA URATES H /LPF Urine Bacteria TRACE /HPF Urine Casts NONE /LPF Urine Mucus SMALL H /LPF Urine Culture Indicated NO White Blood Count 9.2 4.3-11.0 10^3/uL Red Blood Count 4.75 3.80-5.11 10^6/uL Hemoglobin 13.4 11.5-16.0 g/dL Hematocrit 41 35-52 % Mean Corpuscular Volume 86 80-99 fL Mean Corpuscular Hemoglobin 28 25-34 pg Mean Corpuscular Hemoglobin Concent 33 32-36 g/dL Red Cell Distribution Width 12.6 10.0-14.5 % Platelet Count 105 L 130-400 10^3/uL Mean Platelet Volume 10.9 9.0-12.2 fL Immature Granulocyte % (Auto) 1 % Neutrophils (%) (Auto) 94 H 42-75 % Lymphocytes (%) (Auto) 3 L 12-44 % Monocytes (%) (Auto) 2 0-12 % Eosinophils (%) (Auto) 0 0-10 % Basophils (%) (Auto) 0 0-10 % Neutrophils # (Auto) 8.7 H 1.8-7.8 10^3/uL Lymphocytes # (Auto) 0.3 L 1.0-4.0 10^3/uL Monocytes # (Auto) 0.2 0.0-1.0 10^3/uL Eosinophils # (Auto) 0.0 0.0-0.3 10^3/uL Basophils # (Auto) 0.0 0.0-0.1 10^3/uL Immature Granulocyte # (Auto) 0.1 0.0-0.1 10^3/uL Neutrophils % (Manual) 78 % Lymphocytes % (Manual) 2 % Monocytes % (Manual) 2 % Eosinophils % (Manual) 0 % Basophils % (Manual) 0 % Band Neutrophils 18 % Percent Immature Platelet Fraction 4.2 0.0-7.6 % Blood Morphology Comment NORMAL Sodium Level 139 135-145 MMOL/L Potassium Level 3.6 3.6-5.0 MMOL/L Chloride Level 108 H 98-107 MMOL/L Carbon Dioxide Level 17 L 21-32 MMOL/L Anion Gap 14 5-14 MMOL/L Blood Urea Nitrogen 13 7-18 MG/DL Creatinine 0.74 0.60-1.30 MG/DL Estimat Glomerular Filtration Rate 94 BUN/Creatinine Ratio 18 Glucose Level 145 H 70-105 MG/DL Calcium Level 9.5 8.5-10.1 MG/DL Corrected Calcium 9.6 8.5-10.1 MG/DL Total Bilirubin 2.7 H 0.1-1.0 MG/DL Aspartate Amino Transf (AST/SGOT) 930 H 5-34 U/L Alanine Aminotransferase (ALT/SGPT) 684 H 0-55 U/L Alkaline Phosphatase 209 H 40-136 U/L C-Reactive Protein High Sensitivity 0.82 H 0.00-0.50 MG/DL Total Protein 7.4 6.4-8.2 GM/DL Albumin 3.9 3.2-4.5 GM/DL Lipase 20 8-78 U/L My Orders Orders - YESENIA VEGAS Ed Iv/Invasive Line Start (01/04/22 06:30) Ns Iv 1000 Ml (Sodium Chloride 0.9%) (01/04/22 06:30) Ondansetron Injection (Zofran Injectio (01/04/22 06:30) Lidocaine 2% Viscous 15 Ml (Xylocaine Vi (01/04/22 06:30) Antacid Suspension (Mylanta Suspension (01/04/22 06:30) Famotidine Tablet (Pepcid Tablet) (01/04/22 06:30) Continuous Ekg Monitoring (01/04/22 06:30) Ekg Tracing (01/04/22 06:30) Cbc With Automated Diff (01/04/22 06:30) Comprehensive Metabolic Panel (01/04/22 06:30) Hs C Reactive Protein (01/04/22 06:30) Lipase (01/04/22 06:30) Ua Culture If Indicated (01/04/22 06:41) Manual Differential (01/04/22 06:29) Fentanyl Inj (Sublimaze Injection) (01/04/22 07:15) Ct Abdomen/Pelvis W (01/04/22 07:11) Iohexol Injection (Omnipaque 350 Mg/Ml 1 (01/04/22 08:15) Received Contrast (Hold Metformin- Contr (01/04/22 08:15) Ns (Ivpb) (Sodium Chloride 0.9% Ivpb Bag (01/04/22 08:15) Medications Given in ED Current Medications Medications Dose Ordered Sig/Terrence Route Start Time Stop Time Status Last Admin Dose Admin Al Hydrox/Mg Hydrox/Simethicone 30 ml ONCE ONCE PO 01/04/22 06:30 01/04/22 06:35 DC 01/04/22 06:40 30 ML Famotidine 20 mg ONCE ONCE PO 01/04/22 06:30 01/04/22 06:35 DC 01/04/22 06:41 20 MG Fentanyl Citrate 25 mcg ONCE ONCE IVP 01/04/22 07:15 01/04/22 07:16 DC 01/04/22 07:47 25 MCG Iohexol 100 ml ONCE ONCE IV 01/04/22 08:15 01/04/22 08:16 DC 01/04/22 08:22 70 ML Lidocaine HCl 15 ml ONCE ONCE PO 01/04/22 06:30 01/04/22 06:35 DC 01/04/22 06:40 15 ML Ondansetron HCl 8 mg ONCE ONCE IVP 01/04/22 06:30 01/04/22 06:35 DC 01/04/22 06:40 8 MG Sodium Chloride 100 ml ONCE ONCE IV 01/04/22 08:15 01/04/22 08:16 DC 01/04/22 08:22 80 ML Sodium Chloride 1,000 ml @ 0 mls/hr Q0M ONCE IV 01/04/22 06:30 01/04/22 06:35 DC 01/04/22 06:40 999 MLS/HR Vital Signs/I&O 01/04/22 05:44 Temp 37.0 Pulse 91 Resp 18 B/P (MAP) 165/79 (107) Pulse Ox 98 O2 Delivery Room Air Blood Pressure Mean: 107 Progress Progress Note #1: Time: 06:52 Progress Note Differential includes gastritis/gastritis, peptic ulcer disease, duodenitis, biliary colic, gallstone disease, pancreatitis, Meckel's diverticulitis. 0715: After GI cocktail and Zofran the patient states her nausea is better but her pain is still quite significant. Her abdominal exam is persistent with tenderness in the upper abdomen and epigastric and right upper quadrant region with Dang's sign noted. Ultrasound not available on the weekend so we will get a CT with IV contrast in addition to labs. 25 mcg of fentanyl for her discomfort has been ordered. Progress Note #2: Time: 09:04 Progress Note Discussed the case with Dr. Babcock, general surgery. He feels that given her labs and findings that he is okay if she goes home and follows up in the clinic tomorrow or he is happy to see her and consult if medicine wants to admit her for her symptom management. We discussed this with the patient and offered her opportunity to stay inpatient. She would prefer to go home and try and follow- up in the clinic. Her pain is under control and her nausea is still gone. She says she is feeling much better. We will give her a tablet of hydrocodone befor e she leaves just because the pharmacy does not open until 1, 4 hours from now. Initial ECG Impression Date: Jan 04, 2022 Initial ECG Impression Time: 06:49 Initial ECG Rate: 86 Initial ECG Rhythm: Normal Sinus Initial ECG Intervals: Normal Initial ECG Impression: Normal Comment Normal sinus rhythm without clinically relevant ST elevation or depression. Diagnostic Imaging Diagonstic Imaging: CT Plain Films/CT/US/NM/MRI: abdomen, pelvis Reviewed: Reviewed by Me Departure Impression Primary Impression: Biliary colic Additional Impression: Total bilirubin, elevated Disposition: 01 HOME, SELF-CARE Condition: Stable Departure-Patient Inst. Decision time for Depature: 09:05 Referrals: YULISSA GARCIA DO (PCP) Primary Care Physician JONY DE LA TORRE APRN (Family) Primary Care Physician BUDDY BABCOCK DO Patient Instructions: Cholecystectomy (DC) Add. Discharge Instructions: Drink plenty of fluids. Avoid dairy, greasy foods, spicy foods for now. Ondansetron 1 to 2 tablets under the tongue every 6 hours as needed to control nausea or vomiting. Hydrocodone 1 to 2 tablets every 6 hours as necessary to control pain. You also may use ibuprofen 800 mg every 8 hours as needed for pain. Pantoprazole 40 mg daily to reduce stomach acid and control pain. Tomorrow morning call Dr. Babcock's office and make a follow-up appointment for the results of the ultrasound that you need to set up. Tomorrow morning call outpatient and set up an ultrasound appointment. The number is on the top of the order sheet provided from the ER. If you are unable to control your symptoms then I encourage you to return to the ER for help. All discharge instructions reviewed with patient and/or family. Voiced understanding. Scripts Hydrocodone/Acetaminophen (Hydrocodone-Acetamin 5-325 mg) 5 Mg-325 Mg Tablet 1-2 TAB PO Q6H PRN for PAIN-MODERATE (5-7), #20 TAB 0 Refills Prov: YESENIA VEGAS 01/04/22 Ondansetron (Ondansetron Odt) 4 Mg Tab.rapdis 4-8 MG PO Q6H PRN for NAUSEA/VOMITING, #15 TAB 0 Refills Prov: YESENIA VEGAS 01/04/22 Pantoprazole Sodium (Pantoprazole Sodium) 40 Mg Tablet.dr 40 MG PO DAILY for 30 Days, #30 TAB 0 Refills Prov: YESENIA VEGAS 01/04/22 Copy Copies To 1: BUDDY BABCOCK DO YESENIA VEGAS Jan 04, 2022 06:50
[2022-01-04 07:00] LABS: ALBUMIN 3.9 GM/DL (3.2-4.5); POTASSIUM 3.6 MMOL/L (3.6-5.0)
[2022-01-04 07:01] LABS: CALCIUM 9.5 MG/DL (8.5-10.1)
[2022-01-04 07:03] LABS: TOTAL PROTEIN 7.4 GM/DL (6.4-8.2)
[2022-01-04 07:04] LABS: BILIRUBIN,URINE 1+ (NEGATIVE); CLARITY,URINE CLEAR; COLOR,URINE YELLOW; GLUCOSE, URINE (UA) TRACE (NEGATIVE); KETONES,URINE NEGATIVE (NEGATIVE); LEUKOCYTE ESTERASE ,URINE NEGATIVE (NEGATIVE); NITRITE,URINE NEGATIVE (NEGATIVE); PH,URINE 6.5 (5-9); PROTEIN,URINE 1+ (NEGATIVE)
[2022-01-04 07:04] LABS: BILIRUBIN,TOTAL 2.7 MG/DL (0.1-1.0)
[2022-01-04 07:06] LABS: CREATININE SERUM 0.74 MG/DL (0.60-1.30)
[2022-01-04 07:13] LABS: BAND NEUTROPHILS 18 %; BASOPHILS % (MANUAL) 0 %; EOSINOPHILS % (MANUAL) 0 %; LYMPHOCYTES % (MANUAL) 2 %; MONOCYTES % (MANUAL) 2 %; NEUTROPHILS % (MANUAL) 78 %; RBC MORPH NORMAL
[2022-01-04] MEDS ORDERED: fentaNYL INJ 100 MCG/2 ML AMP IVP ONE (07:15)
[2022-01-04 07:32] LABS: AMORPHOUS SEDIMENT,UR FEW AMOR URATES /LPF; BACTERIA,URINE TRACE /HPF; RBC,URINE 25-50 /HPF; SQUAMOUS EPITHELIAL CELL,UR RARE /HPF; WBC,URINE RARE /HPF
[2022-01-04] MEDS ORDERED: IOHEXOL 350 MG/ML 100 ML (OMNIPAQUE 350) VIAL IV ONE (08:15)
[2022-01-04] MEDS ORDERED: NS 100 ML (IVPB) BAG IV ONE (08:15)
[2022-01-04] MEDS ORDERED: HOLD METFORMIN - RECEIVED CONTRAST 20 ML VIAL IV SCH (08:15)
--- NOTE | 2022-01-04 08:41 | Diagnostic Imaging Report ---
EXAMINATION: CT abdomen and pelvis with intravenous contrast. TECHNIQUE: Multiple contiguous axial images were obtained through the abdomen and pelvis after the uneventful administration of intravenous contrast. All CT scans use one or more of the following dose optimizing techniques: automated exposure control, MA and/or KvP adjustment based on patient size and exam type or iterative reconstruction. HISTORY: Right upper quadrant pain. COMPARISON: 03/27/2012. FINDINGS: The heart is unremarkable. Patchy opacities are seen in the lung bases. There is mild prominence of the right ureter. No obstructing calculi are seen. The urinary bladder is mildly prominent. No solid renal mass or perinephric fat stranding. The liver, spleen, pancreas, and adrenal glands have a normal appearance. The gallbladder is mildly prominent. No gallstones are identified. There is no pathologically enlarged mesenteric or retroperitoneal adenopathy. The bowel loops are nondilated. The appendix is visualized in the right lower quadrant and has a normal appearance. There is no free fluid or free air. No acute osseous abnormalities. There is no free air, loculated collection, or adenopathy in the pelvis. IMPRESSION: 1. Mildly prominent right ureter without obstructing calculi. Findings may represent urinary tract infection and correlation with UA is recommended. No evidence of pyelonephritis on the right. 2. Mildly prominent gallbladder. No gallstones are identified. Consider liver gallbladder ultrasound to further evaluate if indicated. Dictated by: Dictated on workstation # [id number]
[2022-01-04] MEDS ORDERED: ONDA4TAB11 PO (09:09)
[2022-01-04] MEDS ORDERED: ACHD5005 PO (09:09)
[2022-01-04] MEDS ORDERED: PANT40TA52 PO (09:09)
[2022-01-04 09:30] VITALS: BP 152/79
[2022-01-04] MEDS ORDERED: HYDROcodone/APAP 5 MG/325 MG (LORTAB) TAB PO ONE (09:30)
== END 2022-01-04 09:30 | disposition home or self-care (01) ==
LOC: EDUNIT# 05:35 → ER 05:38
DX: K80.50 Calculus of bile duct without cholangitis or cholecystitis without obstruction (principal); E80.7 Disorder of bilirubin metabolism, unspecified; Z87.19 Personal history of other diseases of the digestive system
CPT/HCPCS: 36415; 74177; 80053; 81000; 83690; 85007; 85027; 86141; 93005

== ENCOUNTER → 2022-01-06 | Outpatient (CLI) | payer SELFPAY ==
[~2022-01-06] MED LIST changes: +ACHD5005 PO; +ONDA4TAB11 PO; +PANT40TA52 PO
--- NOTE | 2022-01-06 09:29 | Diagnostic Imaging Report ---
PROCEDURE: US Gallbladder. INDICATION: Right upper quadrant pain, hyperbilirubinemia TECHNIQUE: Multiple grayscale sonographic images were obtained of the right upper quadrant of the abdomen. CORRELATION STUDY: None FINDINGS: LIVER: Liver length 16.8 cm. No focal hepatic lesion. The main portal vein is patent and with normal direction of flow. GALLBLADDER: Suggested small amount of potential biliary sludge. No definitive shadowing gallstone. Borderline gallbladder wall thickening 0.3 cm. COMMON BILE DUCT: Nondilated at 0.5 cm. AORTA/IVC: Not well visualized. PANCREAS: Visualized portions appearing unremarkable. RIGHT KIDNEY: 10.9 x 4.3 x 4.9 cm. No hydronephrosis. OTHER: No significant right upper quadrant ascites. Overall assessment is somewhat limited and compromised due to overlying bowel gas. IMPRESSION: 1. Question biliary sludge without definitive shadowing gallstones. Borderline gallbladder wall thickening. If assessment of the gallbladder function is desired, nuclear medicine HIDA scan would be recommended. Dictated by: Dictated on workstation # [id number]
== END ==
LOC: RAD 08:30
PROVIDERS: ATTEND Emergency Medicine
DX: R10.11 Right upper quadrant pain (principal); E80.6 Other disorders of bilirubin metabolism
CPT/HCPCS: 76705